=== PATIENT | male | born 1955 | race Caucasian/White ===

== ENCOUNTER 2018-06-08 08:49 | Inpatient (IN) ==
[2018-06-08] MEDS ORDERED: NORMAL SALINE 1,000 ML IV ONE (09:04)
[2018-06-08] MEDS ORDERED: ALBUTEROL SULFATE/IPRATROPIUM 3 ML NEBU IH ONE ×2 (09:05→09:35)
[2018-06-08 10:01] LABS: Hematocrit 38.2 % (42.0-52.0); Hemoglobin 12.5 gm/dL (13.5-18.0); Mean Cell Volume 98.2 fl (78-100); Mean Corpuscular Hemoglobin 32.1 pg (27-31); Mean Corpuscular Hgb Conc 32.7 g/dl (32-36); Mean Platelet Volume 9.5 fl (8-11.3); Neutrophil # 5.4 K/mm3 (1.3-6.0); Platelet Count 208 K/mm3 (150-450); Red Blood Count 3.89 M/mm3 (4.7-6.0); Red Cell Distribution Width 12.3 % (11.5-14.0); White Blood Count 7.7 K/mm3 (4.0-10.5)
[2018-06-08 10:20] LABS: ALT 24 U/L (19-67); AST 21 U/L (0-48); BNP * 172 pg/mL (5-175); Blood Urea Nitrogen 29 mg/dL (6-23); Carbon Dioxide 23.3 mmol/L (24-32.6); Chloride 100 mmol/L (97-106); Potassium 4.3 mmol/L (3.4-4.6); Sodium 132 mmol/L (132-142)
[2018-06-08] MEDS ORDERED: LEVOFLOXACIN IN DEXTROSE 5 % 750 MG/150 ML BAG IV ONE (10:20)
[2018-06-08 10:21] LABS: Troponin I Less than 0.017 ng/mL (0.00-0.10)
--- NOTE | 2018-06-08 10:31 | ANES ---
Anesthesia Procedure Note Procedure Note: ANESTHESIA PROCEDURE NOTE Date of Procedure: 06/08/2018. Time of procedure: 1020. Performed by: Adin Treviño CRNA Pharmaceutical Detailer: None. Preprocedure diagnosis: Pneumonia, difficult IV access. Post procedure diagnosis: Same. Procedure: Peripheral vein IV insertion. Indications: There is a 62-year-old male in need of a peripheral IV. Findings: See below. Details of the procedure: Skin over the intended target site was cleansed with alcohol. A 22-gauge IV catheter was inserted into a right wrist vein. A sterile dressing was applied over the insertion site. The line was then flushed with sterile saline solution. EBL: Minimal. Fluids: N/A. Specimen: N/A. Post procedure condition: The patient tolerated the procedure well. No complications were noted. Thank you for this consultation. Adin Treviño CRNA
[2018-06-08 10:50] LABS: Albumin * 3.4 gm/dl (3.4-5.0); Alkaline Phosphatase * 97 U/L (50-170); BUN/Creatinine Ratio 21.6 (9.0-21.6); Bilirubin, Total 0.8 mg/dL (0.0-1.1); Ca. Corrected For Albumin 9.2 mg/dL (8.4-10.2); Glucose * 87 mg/dL (70-110); Total Protein 7.9 gm/dL (6.2-8.2)
[2018-06-08] MEDS ORDERED: diphenhydrAMINE HCL 50 MG/ML VIAL ONE (10:56)
[2018-06-08] MEDS ORDERED: METHYLPREDNISOLONE SOD SUCC/PF 125 MG/2 ML VIAL ONE (10:56)
[2018-06-08] MEDS ORDERED: diphenhydrAMINE HCL 50 MG/ML VIAL IV ONE (10:59)
[2018-06-08] MEDS ORDERED: METHYLPREDNISOLONE SOD SUCC/PF 125 MG/2 ML VIAL IV ONE (10:59)
--- NOTE | 2018-06-08 12:20 | ERNOTE ---
Dyspnea - Date Date of Service: 06/08/18 - General Presenting Symptoms: shortness of breath, other - cough and chest pain Time Seen by Provider: 06/08/18 08:59 Source: patient Exam Limitations: no limitations - Immun/Allergies/Home Medications Immunizations: IMMUNIZATION HX Immunizations Up to Date Yes History of Influenza Vaccine No Hx Pneumococcal Vaccination No - History of Present Illness Narrative: Patient presents to the ED for chest pain, shortness of breath and cough. He is being treated for a neck cancer, had chemo last approx 1 week ago and is getting daily radiation. He was not feeling well yesterday afternoon. This has worsened today where he has become so weak that he needs the nurses to help him to sit up so I can listen to his lungs. He has been having constant CP since last nigh, cough and worsening SOB. No pleuritic pain. nothing clearly makes this better or worse. Has not seen anyone else for this. Severity: moderate Treatment ASSOCIATE ACCOUNT DIRECTOR: other - home medications Initiating event: Reports: other - canver treatment Frequency of episodes: Reports: no prior episodes Modifying Factors - (Improves): Reports: nothing Modifying Factors (Worsens): Reports: nothing Associated Symptoms-Dyspnea: Reports: cough, weakness. Denies: leg/calf pain Prior Treatment: Reports: recently seen, treated by physician Review of Systems - Review of Systems Constitutional: Absent: fever ENT: Absent: sore throat Respiratory: Present: shortness of breath, cough Cardiology: Present: chest pain Gastrointestinal/Abdominal: Present: other - feels constipated. Neurological: Present: weakness All Other Systems: All systems neg except as marked Social History: Preferred Language Citizen Of [place] Do you have any confucianist or No cultural preference? Smoking Status Former smoker Have you smoked in the past 12 No months Do you dip or chew tobacco No Alcohol Use none Drug Use none Physical Exam - Physical Exam General Appearance: Present: alert, no apparent distress Head Exam: Present: normal inspection, no evidence of injury Eye Exam: Normal inspection: bilateral, PERRL: bilateral Ears, Nose, Throat: Present: normal ENT inspection Neck: Present: normal inspection Respiratory: Present: no respiratory distress, no accessory muscle use, other - i feel there are tubular breath sounds left base Cardiovascular/Chest: Present: regular rate, rhythm, normal peripheral pulses Gastrointestinal/Abdominal: Present: normal bowel sounds Back Exam: Absent: CVA tenderness (R), CVA tenderness (L) Extremity Exam: Present: other - no DVT findings Neurological Exam: Present: alert, other - generalized weakness, no acute unilateral focal motor or sensory deficits Skin Exam: Present: normal color, warm/dry ED Progress - Results and Orders Patient's Lab Results:: I have reviewed the patient's lab results. - Vital Signs Patient's Vital Signs:: I have reviewed the patient's vital signs. Vital Signs: Vital Signs 06/08/18 08:53 06/08/18 10:45 Temperature 36.5 C Pulse Rate 57 L 60 Respiratory Rate 16 11 L Blood Pressure 135/63 116/63 O2 Sat by Pulse Oximetry 100 100 - EKG EKG read: Interp. by me EKG Comments: Sinus bradycardia, rate 57. Non-specific, no STEMI - X-Ray X-Ray #1 X-Ray: chest Interpretation: Interp. by me X-ray Comments: I reviewed official radiology report - Progress/Reassessment Chief Complaint: Chest Pain Progress Note-Subjective: 06/08/18 12:17 Patient has pneumonia to explain his Sx. No clinical suggestion of sepsis, PE, aortic dissection, or upper airway obstruction. IV ABx givne. He is quite weak and his PSI is 94 so observation will be pursued. D/W Dr Lee, he will admit the patient obs. Patient agreeable. Departure Clinical Impression: Pneumonia, Generalized weakness - Departure Disposition: Still a patient Condition: Fair
[2018-06-08] MEDS ORDERED: MAGNESIUM HYDROXIDE 30 ML UDC PO ONE (16:32)
[2018-06-08] MEDS ORDERED: ONDANSETRON 8 MG PO PRN (17:13)
[2018-06-08] MEDS ORDERED: oxyCODONE HCL 5 MG TABLET PO PRN (17:13)
--- NOTE | 2018-06-08 17:13 | HP ---
Chief Complaint - Chief Complaint Date of Service: 06/08/18 Time of Service: 17:00 Chief Complaint: chest pain History of Present Illness: Jesus Adams, is a 62-year-old white male, with previous medical history of hypertension, hyperlipidemia, obesity, who was admitted on 06/08/2018 for shortness of breath chest pain and cough. The patient was recently diagnosed with cancer of the throat and neck and started chemotherapy on 06/01/2018 and finished her first cycle of 3 cycles after 1 week. He also has started daily radiotherapy for at least 35 days and has been going through the [facility]. For the last few days the patient has been having cough and night sweats. Today developed chest pain and so he went to our emergency room where chest x-ray showed he had a left lower infiltrate. His white blood cell count was 7.3 and patient is not neutropenic. He got a dose of Levaquin in the emergency room but reacted to eat and so he got Benadryl and IV steroids. He was started on IV Rocephin and azithromycin and was admitted under our pneumonia protocol. He was told by his doctor that one of the chemotherapy could make one of his heart block's collapse. We will try to get his medical records from [facility] and [facility] and will order for an echocardiogram tomorrow morning. Medical History (Last Updated 06/08/18 @ 13:09 by Shawna Banks RN) Carpal tunnel syndrome on both sides Social History: Patient Lives/Resources With Spouse Utilized Occupation Preferred Language Hungarian Do you have any orthodoxy or No cultural preference? Smoking Status Former smoker Have you smoked in the past 12 No months Do you dip or chew tobacco No Alcohol Use none Drug Use none Review Of Systems (GEN) - Review of Systems Generalized/Overall Review: Present: Weakness, Chills. Absent: Fever EENTM: Absent: Blurred Vision Respiratory: Present: Cough, Shortness of Breath Cardiac: Present: Chest Pain. Absent: Edema, Palpitations Abdominal: Absent: Nausea, Vomiting Genitourinary: Absent: Urgency, Frequency Musculoskeletal: Absent: Joint Pain Immunizations: IMMUNIZATION HX Immunizations Up to Date Yes History of Influenza Vaccine No Hx Pneumococcal Vaccination No Allergies/Adverse Reactions: Allergies Allergy/AdvReac Type Severity Reaction Status Date / Time levofloxacin [From Levaquin] Allergy Mild Rash Verified 06/08/18 13:10 Home Medications: HOME MEDICATIONS Aspirin [Aspirin EC] 81 mg PO DAILY 06/08/18 [Last Taken Unknown] Atorvastatin Calcium 20 mg PO HS 06/08/18 [Last Taken Unknown] Gabapentin [Neurontin] 300 mg PO TID 06/08/18 [Last Taken Unknown] Metoprolol Tartrate [Lopressor] 12.5 mg PO BID 06/08/18 [Last Taken Unknown] Ondansetron [Zuplenz] 8 mg PO Q8H PRN 06/08/18 [Last Taken Unknown] oxyCODONE HCL [Oxycodone] 5 - 10 mg PO Q4H PRN 06/08/18 [Last Taken Unknown] Exam - Exam Vital Signs: Vital Signs - Last Taken Temp 36.5 C 06/08/18 12:41 Pulse 64 06/08/18 12:41 Resp 14 06/08/18 12:41 BP 134/69 06/08/18 12:41 Pulse Ox 100 06/08/18 12:41 Constitutional: Present: Alert, Oriented x3, Cooperative ENT Exam: Present: hearing grossly normal Eye Exam: bilateral eye: normal inspection, PERRL, EOMI Neck: Present: supple Respiratory: Present: decreased breath sounds, No rales, No wheezing Cardiovascular/Chest: Present: regular rate, rhythm, no JVD, no murmur Abdomen: Present: Normal bowel sounds, soft, nontender, nondistended Extremity: Present: no pedal edema, no calf tenderness Diagnostic Studies: Abnormal Lab Results 06/08/18 06/08/18 Range/Units 09:51 10:00 RBC 3.89 L (4.7-6.0) M/mm3 Hgb 12.5 L (13.5-18.0) gm/dL Hct 38.2 L (42.0-52.0) % MCH 32.1 H (27-31) pg Immature Gran % (Auto) 0.90 H (0.001-0.429) % Immature Gran # (Auto) 0.07 H (0.000-0.0310) K/mm3 Lymphocytes % 19.3 L (20-51) % Lymphocytes # 1.48 L (1.5-3.5) k/mm3 Carbon Dioxide 23.3 L (24-32.6) mmol/L BUN 29 H (6-23) mg/dL Est GFR (Non-Af Amer) 57 L (60-130) mL/min Laboratory Results WBC 7.7 K/mm3 (4.0-10.5) 06/08/18 09:51 RBC 3.89 M/mm3 (4.7-6.0) L 06/08/18 09:51 Hgb 12.5 gm/dL (13.5-18.0) L 06/08/18 09:51 Hct 38.2 % (42.0-52.0) L 06/08/18 09:51 MCV 98.2 fl (78-100) 06/08/18 09:51 MCH 32.1 pg (27-31) H 06/08/18 09:51 MCHC 32.7 g/dl (32-36) 06/08/18 09:51 RDW 12.3 % (11.5-14.0) 06/08/18 09:51 Plt Count 208 K/mm3 (150-450) 06/08/18 09:51 MPV 9.5 fl (8-11.3) 06/08/18 09:51 Immature Gran % (Auto) 0.90 % (0.001-0.429) H 06/08/18 09:51 Immature Gran # (Auto) 0.07 K/mm3 (0.000-0.0310) H 06/08/18 09:51 Neutrophils % 71.0 % (42-75.0) 06/08/18 09:51 Lymphocytes % 19.3 % (20-51) L 06/08/18 09:51 Monocytes % 7.8 % (0.0-9) 06/08/18 09:51 Eosinophils % 0.7 % (0.0-3.0) 06/08/18 09:51 Basophils % 0.3 % (0.0-1.0) 06/08/18 09:51 Nucleated RBC % 0.0 k/mm3 (0-1) 06/08/18 09:51 Neutrophils # 5.4 K/mm3 (1.3-6.0) 06/08/18 09:51 Lymphocytes # 1.48 k/mm3 (1.5-3.5) L 06/08/18 09:51 Monocytes # 0.6 k/mm3 (0.0-1.0) 06/08/18 09:51 Eosinophils # 0.1 k/mm3 (0.0-0.7) 06/08/18 09:51 Absolute Basophils 0.0 k/mm3 (0.0-0.1) 06/08/18 09:51 Sodium 132 mmol/L (132-142) 06/08/18 10:00 Plasma Sodium 132 mmol/L (130-142) 06/08/18 10:00 Potassium 4.3 mmol/L (3.4-4.6) 06/08/18 10:00 Chloride 100 mmol/L (97-106) 06/08/18 10:00 Carbon Dioxide 23.3 mmol/L (24-32.6) L 06/08/18 10:00 Anion Gap 13.0 mmol/L (6.8-13.8) 06/08/18 10:00 BUN 29 mg/dL (6-23) H 06/08/18 10:00 Creatinine 1.34 mg/dL (0.4-1.4) 06/08/18 10:00 Est GFR (Non-Af Amer) 57 mL/min (60-130) L 06/08/18 10:00 BUN/Creatinine Ratio 21.6 (9.0-21.6) 06/08/18 10:00 Random Glucose 87 mg/dL (70-110) 06/08/18 10:00 Lactic Acid, Venous 1.9 mmol/L (0.4-2.0) 06/08/18 Unknown Calcium 9.0 mg/dL (7.9-10.9) 06/08/18 10:00 Calcium Adj for Albumin 9.2 mg/dL (8.4-10.2) 06/08/18 10:00 Total Bilirubin 0.8 mg/dL (0.0-1.1) 06/08/18 10:00 AST 21 U/L (0-48) 06/08/18 10:00 ALT 24 U/L (19-67) 06/08/18 10:00 Alkaline Phosphatase 97 U/L (50-170) 06/08/18 10:00 Troponin I Less than 0.017 ng/mL (0.00-0.10) 06/08/18 10:00 B-Natriuretic Peptide 172 pg/mL (5-175) 06/08/18 10:00 Total Protein 7.9 gm/dL (6.2-8.2) 06/08/18 10:00 Albumin 3.4 gm/dl (3.4-5.0) 06/08/18 10:00 Assessment/Plan - Assessment/Plan (1) Pneumonia Assessment: patient is not neutropenic. will continue with IV rocephin and Azithromycin. Problem: Acute Qualifiers: Pneumonia type: due to unspecified organism Laterality: left Lung location: lower lobe of lung Qualified Code(s): J18.1 - Lobar pneumonia, unspecified organism (2) Cancer of neck Assessment: will let patient sign release of medical records from [facility]. Problem: Acute (3) Tongue cancer Problem: Acute (4) Hypertension Assessment: will continue with is home medication Problem: Acute Qualifiers: Hypertension type: essential hypertension Qualified Code(s): I10 - Essential (primary) hypertension (5) Hyperlipidemia Assessment: will continue with home medications Problem: Acute Qualifiers: Hyperlipidemia type: mixed hyperlipidemia Qualified Code(s): E78.2 - Mixed hyperlipidemia (6) Generalized weakness Assessment: will refer tot PT for evaluation Problem: Acute
[2018-06-08] MEDS ORDERED: ACETAMINOPHEN 325 MG TABLET PO PRN (17:14)
[2018-06-08] MEDS ORDERED: ONDANSETRON HCL 4 MG TABLET PO PRN (17:21)
[2018-06-08] MEDS: AZITHROMYCIN 250 MG in DEXTROSE 5 % IN WATER 250 ML IV SCH ×2 (18:04)
[2018-06-08] MEDS: POLYETHYLENE GLYCOL 3350 119 GM BTL PO SCH (18:05)
[2018-06-08] MEDS: ROSUVASTATIN CALCIUM 10 MG TABLET PO SCH (22:35)
[2018-06-08] MEDS: METOPROLOL TARTRATE 25 MG TABLET PO SCH (22:36)
[2018-06-09] MEDS: POLYETHYLENE GLYCOL 3350 119 GM BTL PO SCH (08:18)
[2018-06-09] MEDS: GABAPENTIN 300 MG CAPSULE PO SCH ×3 (08:19→17:21)
[2018-06-09] MEDS: METOPROLOL TARTRATE 25 MG TABLET PO SCH ×2 (08:19→20:13)
[2018-06-09] MEDS: ASPIRIN 81 MG TABLET.DR PO SCH (08:19)
--- NOTE | 2018-06-09 13:02 | PN ---
Subjective - Date and Time Seen Date: 06/09/18 Time: 12:54 Subjective Narrative: Patient 's main complaint is abdominal carroll and no BM for the last 5 day. Did not respond to miralax and MOM. afebrile Tmax 37 C. Objective - Review of Systems Generalized/Overall Review: Reports: Weakness. Denies: Chills, Fever EENTM: Denies: Blurred Vision Respiratory: Reports: Cough, Shortness of Breath. Denies: Wheezing Cardiac: Denies: Chest Pain, Edema, Palpitations Abdominal: Reports: Abdominal Pain, Constipation. Denies: Nausea, Vomiting Genitourinary Symptoms: Denies: Urgency, Frequency Musculoskeletal Complaints: Reports: Joint Pain - Vitals Vitals: Last Vital Signs Temp 36.8 C 06/09/18 10:36 Pulse 62 06/09/18 10:36 Resp 18 06/09/18 10:36 BP 140/82 06/09/18 10:36 Pulse Ox 98 06/09/18 10:36 - Exam Constitutional: Present: Alert, Oriented x3, Cooperative ENT Exam: Present: hearing grossly normal Neck: Present: supple Respiratory: Present: decreased breath sounds, No rales, No wheezing Cardiovascular/Chest: Present: regular rate, rhythm, no JVD, no murmur Abdomen: Present: Normal bowel sounds, soft, nontender, distended Extremity: Present: no pedal edema, no calf tenderness Assessment/Plan - Problems/Diagnosis (1) Pneumonia Problem: Acute Qualifiers: Pneumonia type: due to unspecified organism Laterality: left Lung location: lower lobe of lung Qualified Code(s): J18.1 - Lobar pneumonia, unspecified organism Narrative: will keep on IV abx f0r 3-4 days and change to oral abx and possible d/c on Tuesday. he just had CTX and RTX- could be immunocompromised although we don't have neutropenia as of yet. will transfer to acute status. 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 s/p 1 cycle of Cisplastin and on RTx, (3) Hypertension Problem: Acute Qualifiers: Hypertension type: essential hypertension Qualified Code(s): I10 - Essential (primary) hypertension (4) Hyperlipidemia Problem: Acute Qualifiers: Hyperlipidemia type: mixed hyperlipidemia Qualified Code(s): E78.2 - Mixed hyperlipidemia (5) Generalized weakness Problem: Acute (6) Constipation Problem: Acute Narrative: if no obstruction- will give enema.
[2018-06-09] MEDS ORDERED: BISACODYL 5 MG TABLET.DR PO ONE (15:20)
[2018-06-09] MEDS ORDERED: BISACODYL 10 MG SUPP.RECT RC ONE (15:20)
[2018-06-09] MEDS: AZITHROMYCIN 250 MG in DEXTROSE 5 % IN WATER 250 ML IV SCH ×2 (17:24)
[2018-06-09] MEDS: ROSUVASTATIN CALCIUM 10 MG TABLET PO SCH (20:14)
[2018-06-10 05:27] LABS: Hematocrit 37.2 % (42.0-52.0); Hemoglobin 12.7 gm/dL (13.5-18.0); Mean Cell Volume 92.5 fl (78-100); Mean Corpuscular Hemoglobin 31.6 pg (27-31); Mean Corpuscular Hgb Conc 34.1 g/dl (32-36); Neutrophil # 12.4 K/mm3 (1.3-6.0); Neutrophil % 87.1 % (42-75.0); Platelet Count 206 K/mm3 (150-450); Red Blood Count 4.02 M/mm3 (4.7-6.0); Red Cell Distribution Width 12.4 % (11.5-14.0); White Blood Count 14.2 K/mm3 (4.0-10.5)
--- NOTE | 2018-06-10 05:30 | PN ---
Subjective - Date and Time Seen Date: 06/10/18 Time: 05:30 Subjective Narrative: Pt seen this am. Bowels moved normally. States that he is coughing up alot of phlegm. Feels hungry. Has been on clears. WBC & K is more elevated today. No other acute events overnight. Objective - Vitals Vitals: Last Vital Signs Temp 36.9 C 06/10/18 03:00 Pulse 51 L 06/10/18 03:00 Resp 16 06/10/18 03:00 BP 138/77 06/10/18 03:00 Pulse Ox 97 06/10/18 03:00 - Abnormal Lab Findings Abnormal Lab Findings: Abnormal Lab Results 06/10/18 Range/Units 05:20 WBC 14.2 H D (4.0-10.5) K/mm3 RBC 4.02 L (4.7-6.0) M/mm3 Hgb 12.7 L (13.5-18.0) gm/dL Hct 37.2 L (42.0-52.0) % MCH 31.6 H (27-31) pg Immature Gran # (Auto) 0.05 H (0.000-0.0310) K/mm3 Neutrophils % 87.1 H (42-75.0) % Lymphocytes % 7.1 L (20-51) % Neutrophils # 12.4 H (1.3-6.0) K/mm3 Lymphocytes # 1.00 L (1.5-3.5) k/mm3 - Exam Constitutional: Present: Alert, Oriented x3, Cooperative, No distress ENT Exam: Present: normal ENT inspection Neck: Present: non-tender, full range of motion, supple Breasts: Present: Exam deferred Respiratory: Present: chest non-tender, No rales, No wheezing Cardiovascular/Chest: Present: normal peripheral pulses, regular rate, rhythm, bradycardia Abdomen: Present: Normal bowel sounds, soft, nontender /Rectal: Present: Exam deferred Extremity: Present: normal range of motion, non-tender, normal inspection, no pedal edema Skin Exam: Present: warm/dry, no cyanosis Lymphatic: Present: no adenopathy Neurologic: Present: alert, oriented x 3 Appearance: Present: appropriate appearance, appropriate insight Eye contact: Present: cooperative, good eye contact, normal speech Thoughts: Present: normal thought pattern, no apparent hallucination Assessment/Plan - Problems/Diagnosis (1) Pneumonia Problem: Acute Qualifiers: Pneumonia type: due to unspecified organism Laterality: left Lung location: lower lobe of lung Qualified Code(s): J18.1 - Lobar pneumonia, unspecified organism Narrative: will keep on IV abx f0r 3-4 days and change to oral abx and possible d/c on Tuesday. he just had CTX and RTX- could be immunocompromised although we don't have neutropenia as of yet. will transfer to acute status. 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 s/p 1 cycle of Cisplastin and on RTx, (3) Constipation Problem: Resolved Narrative: No obstruction on the Abd xray. had results with stimulant laxatives. (4) Generalized weakness Problem: Chronic (5) Hyperlipidemia Problem: Chronic Qualifiers: Hyperlipidemia type: mixed hyperlipidemia Qualified Code(s): E78.2 - Mixed hyperlipidemia (6) Hypertension Problem: Chronic Qualifiers: Hypertension type: essential hypertension Qualified Code(s): I10 - Essential (primary) hypertension
[2018-06-10 05:36] LABS: Anion Gap 11.5 mmol/L (6.8-13.8); BUN/Creatinine Ratio 27.2 (9.0-21.6); Calcium * 8.9 mg/dL (7.9-10.9); Carbon Dioxide 25.5 mmol/L (24-32.6); Estimated Creat Clear 69.7
[2018-06-10] MEDS: POLYETHYLENE GLYCOL 3350 119 GM BTL PO SCH (08:34)
[2018-06-10] MEDS: METOPROLOL TARTRATE 25 MG TABLET PO SCH ×2 (08:34→20:37)
[2018-06-10] MEDS: GABAPENTIN 300 MG CAPSULE PO SCH ×3 (08:35→17:19)
[2018-06-10] MEDS: ASPIRIN 81 MG TABLET.DR PO SCH (08:36)
[2018-06-10] MEDS: AZITHROMYCIN 250 MG in DEXTROSE 5 % IN WATER 250 ML IV SCH ×2 (17:15)
[2018-06-10] MEDS: ROSUVASTATIN CALCIUM 10 MG TABLET PO SCH (20:38)
[2018-06-11] MEDS: POLYETHYLENE GLYCOL 3350 119 GM BTL PO SCH (08:18)
[2018-06-11] MEDS: METOPROLOL TARTRATE 25 MG TABLET PO SCH ×2 (08:20→20:36)
[2018-06-11] MEDS: ASPIRIN 81 MG TABLET.DR PO SCH (08:20)
[2018-06-11] MEDS: GABAPENTIN 300 MG CAPSULE PO SCH ×3 (08:20→16:53)
[2018-06-11 08:35] LABS: Hematocrit 40.3 % (42.0-52.0); Hemoglobin 13.5 gm/dL (13.5-18.0); Mean Cell Volume 94.4 fl (78-100); Mean Corpuscular Hemoglobin 31.6 pg (27-31); Mean Corpuscular Hgb Conc 33.5 g/dl (32-36); Mean Platelet Volume 8.6 fl (8-11.3); Neutrophil # 4.8 K/mm3 (1.3-6.0); Neutrophil % 74.6 % (42-75.0); Platelet Count 174 K/mm3 (150-450); Red Blood Count 4.27 M/mm3 (4.7-6.0); Red Cell Distribution Width 12.7 % (11.5-14.0); White Blood Count 6.5 K/mm3 (4.0-10.5)
[2018-06-11 08:42] LABS: Anion Gap 11.3 mmol/L (6.8-13.8); BUN/Creatinine Ratio 26.1 (9.0-21.6); Calcium * 8.5 mg/dL (7.9-10.9); Carbon Dioxide 27.1 mmol/L (24-32.6); Estimated Creat Clear 66.8; Potassium 4.4 mmol/L (3.4-4.6)
--- NOTE | 2018-06-11 10:09 | PN ---
Subjective - Date and Time Seen Date: 06/11/18 Time: 10:03 Subjective Narrative: Patient afebrile. Tmax 36.9. WBC is back to normal. Had CP last night -EKG Sinus bradycardia, negative troponin. IV line went out, hard stick, anesthesia tried several times the last time. Objective - Review of Systems Generalized/Overall Review: Denies: Chills, Fever EENTM: Denies: Blurred Vision Respiratory: Denies: Cough, Shortness of Breath, Wheezing Cardiac: Reports: Chest Pain - resolved. Denies: Edema, Palpitations Abdominal: Denies: Nausea, Vomiting Genitourinary Symptoms: Denies: Urgency, Frequency Musculoskeletal Complaints: Denies: Joint Pain - Vitals Vitals: Last Vital Signs Temp 36.7 C 06/11/18 09:07 Pulse 74 06/11/18 09:07 Resp 16 06/11/18 09:07 BP 118/70 06/11/18 09:07 Pulse Ox 96 06/11/18 09:07 - Abnormal Lab Findings Abnormal Lab Findings: Abnormal Lab Results 06/11/18 06/11/18 Range/Units 08:30 08:30 RBC 4.27 L (4.7-6.0) M/mm3 Hct 40.3 L (42.0-52.0) % MCH 31.6 H (27-31) pg Lymphocytes % 15.8 L (20-51) % Lymphocytes # 1.02 L (1.5-3.5) k/mm3 BUN 31 H (6-23) mg/dL BUN/Creatinine Ratio 26.1 H (9.0-21.6) - Exam Constitutional: Present: Alert, Oriented x3, Cooperative ENT Exam: Present: hearing grossly normal Neck: Present: supple Respiratory: Present: decreased breath sounds, No rales, No wheezing Cardiovascular/Chest: Present: regular rate, rhythm, no JVD, no murmur Abdomen: Present: Normal bowel sounds, soft, nontender, nondistended Extremity: Present: no pedal edema, no calf tenderness, other - no Sabino Assessment/Plan - Problems/Diagnosis (1) Chest pain Problem: Resolved Qualifiers: Chest pain type: unspecified Qualified Code(s): R07.9 - Chest pain, unspecified Narrative: his CP was extensively worked up in [facility] [place] and they could not find the reason but he was told it was not cardiac. will PPI. (2) Pneumonia Problem: Acute Qualifiers: Pneumonia type: due to unspecified organism Laterality: left Lung location: lower lobe of lung Qualified Code(s): J18.1 - Lobar pneumonia, unspecified organism Narrative: will change now to oral antibiotics as he is a hard stick even with anesthesia consulted-his WBC is back to normal again and he is afebrile, clinically doing better. (3) Tongue cancer Problem: Acute (4) Hypertension Problem: Chronic Qualifiers: Hypertension type: essential hypertension Qualified Code(s): I10 - Essential (primary) hypertension (5) Hyperlipidemia Problem: Chronic Qualifiers: Hyperlipidemia type: mixed hyperlipidemia Qualified Code(s): E78.2 - Mixed hyperlipidemia (6) Generalized weakness Problem: Chronic (7) Bradycardia Problem: Acute Narrative: in the 40's while sleeping and in the 50's-70's while awake. due to his BBlocker. We just reduced the dose to half the strength yesterday . will monitor further.
[2018-06-11] MEDS ORDERED: AZITHROMYCIN 250 MG TABLET PO SCH (10:30)
[2018-06-11] MEDS: CEFDINIR 300 MG CAPSULE PO SCH ×2 (11:06→20:36)
[2018-06-11] MEDS: PANTOPRAZOLE SODIUM 40 MG TABLET.EC PO SCH (12:22)
[2018-06-11] MEDS: ROSUVASTATIN CALCIUM 10 MG TABLET PO SCH (20:36)
--- NOTE | 2018-06-12 05:13 | DS ---
Addendum entered and electronically signed by Reza Lee MD 06/12/18 08 :25: I saw and examined this patient on 06/12/2018. i agree with the narrative and plan of FLAVIA Brown. He had community acquired pneumonia. He reacted to levaquin. He recieved IV rocephin and Azithromycin and is being discharged on Omnicef and Azithromycin. Will do a follow up CXR in 4 weeks.Will see patient in the linic in 1 week. Original Note: <Reza Lee - Last Filed: 06/12/18 08:24> (1) Chest pain Problem: Resolved Qualifiers: Chest pain type: unspecified Qualified Code(s): R07.9 - Chest pain, unspecified (2) Pneumonia Problem: Acute Qualifiers: Pneumonia type: due to unspecified organism Laterality: left Lung location: lower lobe of lung Qualified Code(s): J18.1 - Lobar pneumonia, unspecified organism (3) Tongue cancer Problem: Acute (4) Hypertension Problem: Chronic Qualifiers: Hypertension type: essential hypertension Qualified Code(s): I10 - Essential (primary) hypertension (5) Hyperlipidemia Problem: Chronic Qualifiers: Hyperlipidemia type: mixed hyperlipidemia Qualified Code(s): E78.2 - Mixed hyperlipidemia (6) Generalized weakness Problem: Chronic (7) Bradycardia Problem: Acute Results and Findings: Pending Mircobiology Results 06/08/18 Unknown Blood Blood Culture - Preliminary NO GROWTH AFTER 48 HOURS 06/08/18 10:15 Blood Blood Culture - Preliminary NO GROWTH AFTER 48 HOURS Lab Pending Results 06/08/18 09:51: WBC 7.7, RBC 3.89 L, Hgb 12.5 L, Hct 38.2 L, MCV 98.2, MCH 32.1 H, MCHC 32.7, RDW 12.3, Plt Count 208, MPV 9.5, Immature Gran % (Auto) 0.90 H, Immature Gran # (Auto) 0.07 H, Neutrophils % 71.0, Lymphocytes % 19.3 L, Monocytes % 7.8, Eosinophils % 0.7, Basophils % 0.3, Nucleated RBC % 0.0, Neutrophils # 5.4, Lymphocytes # 1.48 L, Monocytes # 0.6, Eosinophils # 0.1, Absolute Basophils 0.0 06/08/18 10:00: Sodium 132, Plasma Sodium 132, Potassium 4.3, Chloride 100, Carbon Dioxide 23.3 L, Anion Gap 13.0, BUN 29 H, Creatinine 1.34, Est GFR (Non- Af Amer) 57 L, BUN/Creatinine Ratio 21.6, Random Glucose 87, Calcium 9.0, Calcium Adj for Albumin 9.2, Total Bilirubin 0.8, AST 21, ALT 24, Alkaline Phosphatase 97, Troponin I Less than 0.017, B-Natriuretic Peptide 172, Total Protein 7.9, Albumin 3.4 06/08/18 : Lactic Acid, Venous 1.9 06/10/18 05:20: WBC 14.2 H D, RBC 4.02 L, Hgb 12.7 L, Hct 37.2 L, MCV 92.5, MCH 31.6 H, MCHC 34.1, RDW 12.4, Plt Count 206, MPV 9.0, Immature Gran % (Auto) 0.40 , Immature Gran # (Auto) 0.05 H, Neutrophils % 87.1 H, Lymphocytes % 7.1 L, Monocytes % 5.2, Eosinophils % 0.1, Basophils % 0.1, Nucleated RBC % 0.0, Neutrophils # 12.4 H, Lymphocytes # 1.00 L, Monocytes # 0.7, Eosinophils # 0.0, Absolute Basophils 0.0 06/10/18 05:20: Sodium 135, Plasma Sodium 135, Potassium 5.0 H, Chloride 103, Carbon Dioxide 25.5, Anion Gap 11.5, BUN 31 H, Creatinine 1.14, Est GFR (Non-Af Amer) 69 D, BUN/Creatinine Ratio 27.2 H, Random Glucose 107, Calcium 8.9 06/11/18 03:30: Troponin I Less than 0.017 06/11/18 08:30: WBC 6.5 D, RBC 4.27 L, Hgb 13.5, Hct 40.3 L, MCV 94.4, MCH 31.6 H, MCHC 33.5, RDW 12.7, Plt Count 174, MPV 8.6, Immature Gran % (Auto) 0.30 , Immature Gran # (Auto) 0.02, Neutrophils % 74.6, Lymphocytes % 15.8 L, Monocytes % 8.8, Eosinophils % 0.5, Basophils % 0.0, Nucleated RBC % 0.0, Neutrophils # 4.8, Lymphocytes # 1.02 L, Monocytes # 0.6, Eosinophils # 0.0, Absolute Basophils 0.0 06/11/18 08:30: Sodium 134, Plasma Sodium 134, Potassium 4.4, Chloride 100, Carbon Dioxide 27.1, Anion Gap 11.3, BUN 31 H, Creatinine 1.19, Est GFR (Non-Af Amer) 65, BUN/Creatinine Ratio 26.1 H, Random Glucose 85, Calcium 8.5 Disposition: Home self-care Condition: Good Problem Oriented Discharge Instructions to Patient/Family: Community-Acquired Pneumonia, Adult, [id number] Additional Patient Instructions (free text): Please follow-up with your PCP next week. Follow up with Dr. Lee 06/20 at 2:45 please check in at 2:30 to do paperwork. Prescriptions (Any new or edited meds): Azithromycin [Zithromax] 250 mg PO DAILY #3 tab Cefdinir [Omnicef] 300 mg PO BID #14 cap Pantoprazole Sodium [Protonix] 40 mg PO DAILY@0700 #60 tablet. Complete Home Medications List: Complete Home Medication List: Aspirin [Aspirin EC] 81 mg PO DAILY 06/08/18 Atorvastatin Calcium 20 mg PO HS 06/08/18 Gabapentin [Neurontin] 300 mg PO TID 06/08/18 Metoprolol Tartrate [Lopressor] 12.5 mg PO BID 06/08/18 Ondansetron [Zuplenz] 8 mg PO Q8H PRN 06/08/18 oxyCODONE HCL [Oxycodone] 5 - 10 mg PO Q4H PRN 06/08/18 Azithromycin [Zithromax] 250 mg PO DAILY #3 tab 06/12/18 Cefdinir [Omnicef] 300 mg PO BID #14 cap 06/12/18 Pantoprazole Sodium [Protonix] 40 mg PO DAILY@0700 #60 tablet. 06/12/18 <Adore Hooks - Last Filed: 06/12/18 20:00> (1) Pneumonia Problem: Acute Qualifiers: Pneumonia type: due to unspecified organism Laterality: left Lung location: lower lobe of lung Qualified Code(s): J18.1 - Lobar pneumonia, unspecified organism (2) Tongue cancer Problem: Acute (3) Generalized weakness Problem: Chronic (4) Hyperlipidemia Problem: Chronic Qualifiers: Hyperlipidemia type: mixed hyperlipidemia Qualified Code(s): E78.2 - Mixed hyperlipidemia (5) Hypertension Problem: Chronic Qualifiers: Hypertension type: essential hypertension Qualified Code(s): I10 - Essential (primary) hypertension Description of Stay: Admission date: 06/09/18 Discharge date: 06/12/18 Description of Hospital Stay. Mr. Adams is a 62-year-old WM with PMH of: HTN & HLD, who was admitted on 2017 for SOB, Chest pain and cough. The pt was recently diagnosed with cancer of the throat and neck and started chemotherapy on 06/01/2018 and had completed the 1st cycle out of 3 a week before hospitalization. He was also started on daily radiation therapy and is followed by the [facility] for these treatment. On DOA , he developed chest pain which prompted him to come to the [facility] ER. The CXR obtained revealed infiltrates on the LLL. His labwork involving CBC & BMP were mostly unremarkable. He was given IV levaquin at the ED, however, he was felt to have had a reaction to the antibiotics due to red rashes. He received treatment with Solumedrol and Benadryl which resolved it. He was then started on Azithromycin and Rocephin. Because of likelihood of immonocompromised state given recent chemo and radiation treatment, it was beneficial for him to remain in the hospital to complete additional days of IV antibiotics. He cardiac work- up for his chest pain with EKG/Troponin were negative for ACS/MA. He previously had an extensive work -up at the [facility] for his C.P which was found to be non- cardiac related. He was discharged home on 7 more days of Cefdinir. Procedures Performed: none Results and Findings: Pending Mircobiology Results 06/08/18 Unknown Blood Blood Culture - Preliminary NO GROWTH AFTER 48 HOURS 06/08/18 10:15 Blood Blood Culture - Preliminary NO GROWTH AFTER 48 HOURS Lab Pending Results 06/08/18 09:51: WBC 7.7, RBC 3.89 L, Hgb 12.5 L, Hct 38.2 L, MCV 98.2, MCH 32.1 H, MCHC 32.7, RDW 12.3, Plt Count 208, MPV 9.5, Immature Gran % (Auto) 0.90 H, Immature Gran # (Auto) 0.07 H, Neutrophils % 71.0, Lymphocytes % 19.3 L, Monocytes % 7.8, Eosinophils % 0.7, Basophils % 0.3, Nucleated RBC % 0.0, Neutrophils # 5.4, Lymphocytes # 1.48 L, Monocytes # 0.6, Eosinophils # 0.1, Absolute Basophils 0.0 06/08/18 10:00: Sodium 132, Plasma Sodium 132, Potassium 4.3, Chloride 100, Carbon Dioxide 23.3 L, Anion Gap 13.0, BUN 29 H, Creatinine 1.34, Est GFR (Non- Af Amer) 57 L, BUN/Creatinine Ratio 21.6, Random Glucose 87, Calcium 9.0, Calcium Adj for Albumin 9.2, Total Bilirubin 0.8, AST 21, ALT 24, Alkaline Phosphatase 97, Troponin I Less than 0.017, B-Natriuretic Peptide 172, Total Protein 7.9, Albumin 3.4 06/08/18 : Lactic Acid, Venous 1.9 06/10/18 05:20: WBC 14.2 H D, RBC 4.02 L, Hgb 12.7 L, Hct 37.2 L, MCV 92.5, MCH 31.6 H, MCHC 34.1, RDW 12.4, Plt Count 206, MPV 9.0, Immature Gran % (Auto) 0.40 , Immature Gran # (Auto) 0.05 H, Neutrophils % 87.1 H, Lymphocytes % 7.1 L, Monocytes % 5.2, Eosinophils % 0.1, Basophils % 0.1, Nucleated RBC % 0.0, Neutrophils # 12.4 H, Lymphocytes # 1.00 L, Monocytes # 0.7, Eosinophils # 0.0, Absolute Basophils 0.0 06/10/18 05:20: Sodium 135, Plasma Sodium 135, Potassium 5.0 H, Chloride 103, Carbon Dioxide 25.5, Anion Gap 11.5, BUN 31 H, Creatinine 1.14, Est GFR (Non-Af Amer) 69 D, BUN/Creatinine Ratio 27.2 H, Random Glucose 107, Calcium 8.9 06/11/18 03:30: Troponin I Less than 0.017 06/11/18 08:30: WBC 6.5 D, RBC 4.27 L, Hgb 13.5, Hct 40.3 L, MCV 94.4, MCH 31.6 H, MCHC 33.5, RDW 12.7, Plt Count 174, MPV 8.6, Immature Gran % (Auto) 0.30 , Immature Gran # (Auto) 0.02, Neutrophils % 74.6, Lymphocytes % 15.8 L, Monocytes % 8.8, Eosinophils % 0.5, Basophils % 0.0, Nucleated RBC % 0.0, Neutrophils # 4.8, Lymphocytes # 1.02 L, Monocytes # 0.6, Eosinophils # 0.0, Absolute Basophils 0.0 06/11/18 08:30: Sodium 134, Plasma Sodium 134, Potassium 4.4, Chloride 100, Carbon Dioxide 27.1, Anion Gap 11.3, BUN 31 H, Creatinine 1.19, Est GFR (Non-Af Amer) 65, BUN/Creatinine Ratio 26.1 H, Random Glucose 85, Calcium 8.5 Discharge Location: Home Discharge Activity: Activity as tolerated Discharge Diet: General/regular food
[2018-06-12] MEDS: PANTOPRAZOLE SODIUM 40 MG TABLET.EC PO SCH (07:46)
[2018-06-12 08:30] VITALS: BP 140/84
== END 2018-06-12 08:59 | disposition home or self-care (01) | DRG 195 ==
LOC: ER 08:49 → MS 08:49
PROVIDERS: ADMIT Internal Medicine; ATTEND Internal Medicine
CPT/HCPCS: 36415; 71010; 71045; 74019; 74020; 80048; 80053; 83519; 83605; 83880; 84484; 85025; 87040; 93005; 94640; 94664; 96365; 96375; 99284

== ENCOUNTER 2018-08-01 18:10 | Inpatient (IN) ==
[2018-08-01] MEDS ORDERED: ASPIRIN 81 MG TAB.CHEW PO STA (18:21)
[2018-08-01] MEDS ORDERED: ASPIRIN 81 MG TAB.CHEW ONE (18:24)
[2018-08-01] MEDS ORDERED: NORMAL SALINE 1,000 ML IV ONE (19:17)
[2018-08-01 19:28] LABS: Albumin * 2.8 gm/dl (3.4-5.0); Anion Gap 15.7 mmol/L (6.8-13.8); BUN/Creatinine Ratio 24.3 (9.0-21.6); Bilirubin, Total 0.7 mg/dL (0.0-1.1); Ca. Corrected For Albumin 9.2 mg/dL (8.4-10.2); Calcium * 8.6 mg/dL (7.9-10.9); Carbon Dioxide 28.5 mmol/L (24-32.6); Chol/HDL Risk Ratio 3.2 mg/dL (3.3-5.0); Potassium 3.2 mmol/L (3.4-4.6); Total Protein 7.7 gm/dL (6.2-8.2)
[2018-08-01 20:01] LABS: Hematocrit 29.6 % (42.0-52.0); Mean Cell Volume 93.7 fl (78-100); Mean Corpuscular Hemoglobin 31.6 pg (27-31); Mean Corpuscular Hgb Conc 33.8 g/dl (32-36); Platelet Count 77 K/mm3 (150-450); Red Blood Count 3.16 M/mm3 (4.7-6.0); Red Cell Distribution Width 13.6 % (11.5-14.0); White Blood Count 1.6 K/mm3 (4.0-10.5)
--- NOTE | 2018-08-01 20:20 | ERNOTE ---
Abdominal HPI - Narrative Date of Service: 08/01/18 - General Chief Complaint: Abdominal Pain Time Seen by Provider: 08/01/18 18:21 Source: patient - Immun/Allergies/Home Medications Immunizatons: IMMUNIZATION HX Immunizations Up to Date Yes History of Influenza Vaccine No Hx Pneumococcal Vaccination No Allergies/Adverse Reactions: Allergies levofloxacin [From Levaquin] Allergy (Mild, Verified 08/01/18 21:16) Rash Home Medications: HOME MEDICATIONS RX: Atorvastatin Calcium 20 mg PO HS 06/08/18 [Last Taken Unknown] RX: Gabapentin [Neurontin] 900 mg PO TID 06/08/18 [Last Taken Unknown] RX: Metoprolol Tartrate [Lopressor] 12.5 mg PO BID 06/08/18 [Last Taken Unknown] ondansetron 8 mg oral soluble film 8 mg PO Q8H PRN #30 ea 06/20/18 [Last Taken Unknown] pantoprazole DR 40 mg granules delayed-release for susp in packet 40 mg PO DAILY #30 ea 06/20/18 [Last Taken Unknown] Prochlorperazine Maleate [Compazine] 10 mg PEG Q6H PRN 08/02/18 [Last Taken Unknown] RX: Famotidine 20 mg PEG BID 08/02/18 [Last Taken Unknown] - History of Present Illness Narrative: Pt comes in with chest pain for x2 days, abdominal pain, and intermittent shortness of breath. Pt has been dx with throat cancer and is receiving chemotherapy/radiation. patient stats he has had a poor appetite. Date (Duration): 08/01/18 Timing: getting worse Quality: moderate, aching, burning Activities at Onset: none Associated Symptoms: Present: headache, chest pain, shortness of breath Prior Abdominal Problems: Present: none Prior Treatment: Present: recently hospitalized Review of Systems - Review of Systems Constitutional: Present: See HPI, weakness, fatigue, malaise, weight loss, decreased activity level EYE: Present: see HPI ENT: Present: See HPI Respiratory: Present: See HPI Cardiology: Present: See HPI Gastrointestinal/Abdominal: Present: See HPI Genitourinary: Present: no symptoms reported Musculoskeletal: Present: See HPI Skin: Present: See HPI Neurological: Present: no symptoms reported Endocrine: Present: no symptoms reported Hematologic/Lymphatic: Present: no symptoms reported Psych: Present: no symptoms reported All Other Systems: All systems neg except as marked Medical History (Last Reviewed 08/01/18 @ 21:15 by Harriett Jeffries, MISTI) History of chemotherapy History of throat cancer Hx of radiation therapy Hx of tongue cancer Carpal tunnel syndrome on both sides Hypertension Pneumonia Surgical History: Surgical History (Last Reviewed 08/01/18 @ 21:15 by Harriett Jeffries, RN) History of gastrostomy tube placement Family History: Family History (Last Reviewed 08/01/18 @ 21:15 by Harriett Jeffries RN) Brother Family hx of colon cancer Hx of brain cancer Hx of cancer of lung Social History: Preferred Language Italian Smoking Status Never smoker Alcohol Use none Drug Use none Physical Exam - Physical Exam General Appearance: Present: wd/wn, alert, mild distress Head Exam: Present: normal inspection, no evidence of injury Eye Exam: Normal inspection: bilateral, PERRL: bilateral Ears, Nose, Throat: Present: dry mucous membranes - Neck: Present: supple Respiratory: Present: no accessory muscle use, chest tenderness, decreased breath sounds Cardiovascular/Chest: Present: regular rate, rhythm, no murmur, normal peripheral pulses Gastrointestinal/Abdominal: Present: normal bowel sounds, nontender, nondistended, soft, no organomegaly Back Exam: Present: normal inspection, normal range of motion, no CVA tenderness, no vertebral tenderness Extremity Exam: Present: normal inspection, non-tender, normal range of motion, no edema Neurological Exam: Present: alert, oriented, normal mood/affect, no motor/sensory deficits Skin Exam: Present: normal color, warm/dry Lymphatic Exam: Present: no adenopathy ED Progress - Results and Orders Patient's Lab Results:: I have reviewed the patient's lab results. - Vital Signs Patient's Vital Signs:: I have reviewed the patient's vital signs. Vital Signs: Vital Signs 08/01/18 18:18 Temperature 37.0 C Pulse Rate 88 Respiratory Rate 14 Blood Pressure 125/68 O2 Sat by Pulse Oximetry 99 - EKG EKG: NSR EKG read: Reviewed by me - X-Ray X-Ray #1 X-Ray: chest Interpretation: Reviewed by me X-ray Comments: no acute process - Progress/Reassessment Chief Complaint: Abdominal Pain Plan - Plan Plan: admission Departure Clinical Impression: Generalized weakness, Pancytopenia due to chemotherapy - Departure Disposition: Short Term Hospital Inpatient Condition: Stable
[2018-08-01 20:30] LABS: Atypical (Reactive) Lymph 4 % (0-2); Band 4 % (0-2.0); Immature Granulocyte 2 (0-1); Lymphocyte 14 % (20-51); Monocyte 16 % (0-9); Neutrophil 60 % (42-75); Neutrophil # 0.5 K/mm3 (1.3-6.0); Platelet Estimate Decreased (NORMAL); Total Cells Counted 50
[2018-08-01 20:31] LABS: Anisocytosis 1+
[2018-08-01] MEDS ORDERED: NORMAL SALINE 1,000 ML IV PRN (23:28)
[2018-08-01] MEDS ORDERED: POTASSIUM CHLORIDE 20 MEQ TABLET.SA PO ONE (23:29)
[2018-08-01] MEDS ORDERED: HYDROcodone/ACETAMINOPHEN 5 ML UDC PEG PRN (23:47)
[2018-08-02] MEDS ORDERED: HYDROcodone/ACETAMINOPHEN 5 ML UDC ONE ×2 (00:06→14:19)
[2018-08-02] MEDS ORDERED: ROSUVASTATIN CALCIUM 10 MG TABLET PO SCH (00:15)
[2018-08-02] MEDS: ONDANSETRON HCL/PF 2 MG/ML VIAL IV PRN (00:18)
[2018-08-02] MEDS ORDERED: PANTOPRAZOLE SODIUM 40 MG TABLET.EC PO SCH (07:00)
[2018-08-02] MEDS ORDERED: OMEPRAZOLE 2 MG/ML BTL PEG SCH (07:00)
[2018-08-02 07:22] LABS: Urine Bilirubin Negative (NEGATIVE); Urine Blood Negative /ul (NEGATIVE); Urine Ketone 5 mg/dL (NEGATIVE); Urine Nitrite Negative (NEGATIVE); Urine Protein 30 mg/dL (NEGATIVE); Urine Specific Gravity 1.025 SP.GR. (1.005-1.030); Urine Urobilinogen Normal (NORMAL)
[2018-08-02 07:45] LABS: Urine Appearance Slightly Cloudy (CLEAR); Urine Color Yellow; Urine RBC None Seen /hpf (0-5); Urine WBC 0-5 /hpf (0-5)
[2018-08-02 07:46] LABS: Urine Bacteria 1+; Urine Coarse Granular Cast 0-5 /LPF
[2018-08-02 07:47] LABS: Urine Fine Granular Cast 0-5 /LPF
[2018-08-02] MEDS: GABAPENTIN 300 MG CAPSULE PEG SCH ×3 (08:02→17:06)
[2018-08-02] MEDS: METOPROLOL TARTRATE 25 MG TABLET PEG SCH ×2 (08:02→21:22)
--- NOTE | 2018-08-02 08:18 | HP ---
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 He finished his cysplastin at the end of July and is continuing with his radiotherapy for additional 3 months. One week prior to admission, the patient had a feeding tube placed as he was not able to swallow his medications or take any food. Yesterday the patient started having epigastric pain /chest pain, heartburn like and started upchucking blood tinged fluid mixed with saliva. The patient says he is not coughing the stuff but feels like he wants to vomit it out. He feels the problem is not at the base of his tongue but below it. His EKG showed normal sinus rhythm and his troponin 2 were normal. Medical History (Last Reviewed 08/01/18 @ 21:15 by Harriett Jeffries RN) History of chemotherapy History of throat cancer Hx of radiation therapy Hx of tongue cancer Carpal tunnel syndrome on both sides Hypertension Pneumonia Surgical History: Surgical History (Last Reviewed 08/01/18 @ 21:15 by Harriett Jeffries, MISTI) History of gastrostomy tube placement Family History: Family History (Last Reviewed 08/01/18 @ 21:15 by Harriett Jeffries RN) Brother Family hx of colon cancer Hx of brain cancer Hx of cancer of lung Social History: Patient Lives/Resources With Spouse Utilized Occupation retired Preferred Language Armenian Do you have any protestant or No cultural preference? Smoking Status Never smoker Have you smoked in the past 12 No months Alcohol Use none Drug Use none Review Of Systems (GEN) - Review of Systems Generalized/Overall Review: Present: Weakness, Weight loss. Absent: Chills, Fever Respiratory: Present: Cough, Shortness of Breath. Absent: Wheezing Cardiac: Present: Chest Pain. Absent: Edema, Palpitations Abdominal: Present: Nausea, Vomiting, Hematemesis Genitourinary: Absent: Urgency, Frequency Immunizations: IMMUNIZATION HX Immunizations Up to Date Yes History of Influenza Vaccine No Hx Pneumococcal Vaccination No Allergies/Adverse Reactions: Allergies Allergy/AdvReac Type Severity Reaction Status Date / Time levofloxacin [From Levaquin] Allergy Mild Rash Verified 08/01/18 21:16 Home Medications: HOME MEDICATIONS Atorvastatin Calcium 20 mg PO HS 06/08/18 [Last Taken Unknown] Gabapentin [Neurontin] 900 mg PO TID 06/08/18 [Last Taken Unknown] Metoprolol Tartrate [Lopressor] 12.5 mg PO BID 06/08/18 [Last Taken Unknown] ondansetron 8 mg oral soluble film 8 mg PO Q8H PRN #30 ea 06/20/18 [Last Taken U nknown] pantoprazole DR 40 mg granules delayed-release for susp in packet 40 mg PO DAILY #30 ea 06/20/18 [Last Taken Unknown] Famotidine 20 mg PEG BID 08/02/18 [Last Taken Unknown] Prochlorperazine Maleate [Compazine] 10 mg PEG Q6H PRN 08/02/18 [Last Taken Unknown] Exam - Exam Vital Signs: Vital Signs - Last Taken Temp 37.0 C 08/02/18 07:13 Pulse 84 08/02/18 07:13 Resp 18 08/02/18 07:13 BP 121/72 08/02/18 07:13 Pulse Ox 96 08/02/18 07:13 Constitutional: Present: Alert, Oriented x3, Cooperative, Mild distress, Thin and frail Eye Exam: bilateral eye: normal inspection, PERRL, EOMI Neck: Present: supple Respiratory: Present: decreased breath sounds, No rales, No wheezing Cardiovascular/Chest: Present: regular rate, rhythm, no JVD, no murmur Abdomen: Present: Normal bowel sounds, soft, nontender, nondistended Extremity: Present: no pedal edema, no calf tenderness Diagnostic Studies: Abnormal Lab Results 08/01/18 08/01/18 08/02/18 Range/Units 19:00 19:00 07:19 WBC 1.6 L (4.0-10.5) K/mm3 RBC 3.16 L (4.7-6.0) M/mm3 Hgb 10.0 L (13.5-18.0) gm/dL Hct 29.6 L (42.0-52.0) % MCH 31.6 H (27-31) pg Plt Count 77 L (150-450) K/mm3 Band Neuts % (Manual) 4 H (0-2.0) % Lymphocytes % (Manual) 14 L (20-51) % Monocytes % (Manual) 16 H (0-9) % Immature Granulocytes 2 H (0-1) Neutrophils # (Manual) 0.5 L (1.3-6.0) K/mm3 Lymphocytes # (Manual) 0.1 L (1.5-3.5) k/mm3 Atypic/Reactive Lymphs 4 H (0-2) % Platelet Estimate Decreased L (NORMAL) Potassium 3.2 L D (3.4-4.6) mmol/L Chloride 96 L (97-106) mmol/L Anion Gap 15.7 H (6.8-13.8) mmol/L BUN 51 H D (6-23) mg/dL Creatinine 2.10 H D (0.4-1.4) mg/dL Est GFR (Non-Af Amer) 34 L D (60-130) mL/min BUN/Creatinine Ratio 24.3 H (9.0-21.6) Albumin 2.8 L (3.4-5.0) gm/dl Cholesterol/HDL Ratio 3.2 L (3.3-5.0) mg/dL Urine Protein 30 H (NEGATIVE) mg/dL Prot Sulfosalicylic Acd 3+ H (0) mg/dL Urine Bacteria 1+ H (NONE) Fine Granular Casts 0-5 H (NONE) /LPF Coarse Granular Casts 0-5 H (NONE) /LPF Laboratory Results WBC 1.6 K/mm3 (4.0-10.5) L 08/01/18 19:00 RBC 3.16 M/mm3 (4.7-6.0) L 08/01/18 19:00 Hgb 10.0 gm/dL (13.5-18.0) L 08/01/18 19:00 Hct 29.6 % (42.0-52.0) L 08/01/18 19:00 MCV 93.7 fl (78-100) 08/01/18 19:00 MCH 31.6 pg (27-31) H 08/01/18 19:00 MCHC 33.8 g/dl (32-36) 08/01/18 19:00 RDW 13.6 % (11.5-14.0) 08/01/18 19:00 Plt Count 77 K/mm3 (150-450) L 08/01/18 19:00 MPV 10.0 fl (8-11.3) 08/01/18 19:00 Neutrophils % (Manual) 60 % (42-75) 08/01/18 19:00 Band Neuts % (Manual) 4 % (0-2.0) H 08/01/18 19:00 Lymphocytes % (Manual) 14 % (20-51) L 08/01/18 19:00 Monocytes % (Manual) 16 % (0-9) H 08/01/18 19:00 Immature Granulocytes 2 (0-1) H 08/01/18 19:00 Neutrophils # (Manual) 0.5 K/mm3 (1.3-6.0) L 08/01/18 19:00 Lymphocytes # (Manual) 0.1 k/mm3 (1.5-3.5) L 08/01/18 19:00 Monocytes # (Manual) 0.1 k/mm3 (0.0-1.0) 08/01/18 19:00 Atypic/Reactive Lymphs 4 % (0-2) H 08/01/18 19:00 Platelet Estimate Decreased (NORMAL) L 08/01/18 19:00 Anisocytosis 1+ 08/01/18 19:00 Elliptocytes Trace 08/01/18 19:00 Sodium 137 mmol/L (132-142) 08/01/18 19:00 Plasma Sodium 137 mmol/L (130-142) 08/01/18 19:00 Potassium 3.2 mmol/L (3.4-4.6) L D 08/01/18 19:00 Chloride 96 mmol/L (97-106) L 08/01/18 19:00 Carbon Dioxide 28.5 mmol/L (24-32.6) 08/01/18 19:00 Anion Gap 15.7 mmol/L (6.8-13.8) H 08/01/18 19:00 BUN 51 mg/dL (6-23) H D 08/01/18 19:00 Creatinine 2.10 mg/dL (0.4-1.4) H D 08/01/18 19:00 Est GFR (Non-Af Amer) 34 mL/min (60-130) L D 08/01/18 19:00 BUN/Creatinine Ratio 24.3 (9.0-21.6) H 08/01/18 19:00 Random Glucose 103 mg/dL (70-110) 08/01/18 19:00 Lactic Acid, Venous 1.1 mmol/L (0.4-2.0) 08/01/18 19:34 Calcium 8.6 mg/dL (7.9-10.9) 08/01/18 19:00 Calcium Adj for Albumin 9.2 mg/dL (8.4-10.2) 08/01/18 19:00 Total Bilirubin 0.7 mg/dL (0.0-1.1) 08/01/18 19:00 AST 39 U/L (0-48) 08/01/18 19:00 ALT 42 U/L (19-67) 08/01/18 19:00 Alkaline Phosphatase 75 U/L (50-170) 08/01/18 19:00 Troponin I Less than 0.017 ng/mL (0.00-0.10) 08/02/18 00:55 Total Protein 7.7 gm/dL (6.2-8.2) 08/01/18 19:00 Albumin 2.8 gm/dl (3.4-5.0) L 08/01/18 19:00 Triglycerides 109 mg/dL (30-200) 08/01/18 19:00 Cholesterol 157 mg/dL (0-200) 08/01/18 19:00 LDL Cholesterol 87 mg/dL (70-130) 08/01/18 19:00 VLDL Cholesterol 22 mg/dL (5-40) 08/01/18 19:00 HDL Cholesterol 48 mg/dL (40-60) 08/01/18 19:00 Cholesterol/HDL Ratio 3.2 mg/dL (3.3-5.0) L 08/01/18 19:00 Procalcitonin 0.11 ng/mL (0.05-0.50) 08/01/18 19:52 Urine Color Yellow 08/02/18 07:19 Urine Appearance Slightly cloudy (CLEAR) 08/02/18 07:19 Urine pH 6.0 pH (5.0-7.0) 08/02/18 07:19 Ur Specific [place] 1.025 SP.GR. (1.005-1.030) 08/02/18 07:19 Urine Protein 30 mg/dL (NEGATIVE) H 08/02/18 07:19 Urine Glucose (UA) Negative mg/dL (NEGATIVE) 08/02/18 07:19 Urine Ketones 5 mg/dL (NEGATIVE) 08/02/18 07:19 Urine Blood Negative /ul (NEGATIVE) 08/02/18 07:19 Urine Nitrate Negative (NEGATIVE) 08/02/18 07:19 Urine Bilirubin Negative mg/dl (NEGATIVE) 08/02/18 07:19 Prot Sulfosalicylic Acd 3+ mg/dL (0) H 08/02/18 07:19 Urine Urobilinogen Normal EU/dl (NORMAL) 08/02/18 07:19 Ur Leukocyte Esterase Negative /ul (NEGATIVE) 08/02/18 07:19 Urine RBC None seen /hpf (0-5) 08/02/18 07:19 Urine WBC 0-5 /hpf (0-5) 08/02/18 07:19 Ur Epithelial Cells 0-5 /hpf (0-5) 08/02/18 07:19 Urine Bacteria 1+ (NONE) H 08/02/18 07:19 Fine Granular Casts 0-5 /LPF (NONE) H 08/02/18 07:19 Coarse Granular Casts 0-5 /LPF (NONE) H 08/02/18 07:19 Urine Culture Comments No culture indicated 08/02/18 07:19 Assessment/Plan - Assessment/Plan (1) Epigastric abdominal pain Assessment: GERD with likely esophagitis/gastritis - RTX induced. will start IV protonix BID for now. will get flat upright plate of abdomen. will need bland diet. will refer to dietitician. he has narcortic pain medication. if still with pain will try viscous oral lidocaine soluion. he has dysphagia and odynophagia. Problem: Acute (2) Dysphagia Assessment: likely due to esophagitis r/o new metastatic lesion Problem: Acute Qualifiers: Dysphagia type: unspecified Qualified Code(s): R13.10 - Dysphagia, unspecified (3) Odynophagia Assessment: due to esophagitis likely RTX induced Problem: Acute (4) Chest pain Assessment: AMI ruled out. likely due to esophagitis/gastritis Problem: Resolved Qualifiers: (5) Generalized weakness Problem: Chronic (6) Tongue cancer Problem: Acute (7) Hyperlipidemia Problem: Chronic Qualifiers: (8) Pancytopenia due to chemotherapy Assessment: CTx stopped end july Problem: Acute
[2018-08-02] MEDS: PANTOPRAZOLE SODIUM 40 MG in NORMAL SALINE 100 ML IV SCH ×2 (08:35→21:21)
[2018-08-02] MEDS ORDERED: ASPIRIN 81 MG TAB.CHEW PEG SCH (09:00)
[2018-08-02] MEDS: POTASSIUM CHLORIDE 20 MEQ in NORMAL SALINE 1,000 ML IV SCH ×2 (09:01→17:05)
[2018-08-02] MEDS: HYDROcodone/ACETAMINOPHEN 5 ML UDC PEG PRN (14:23)
[2018-08-02] MEDS ORDERED: LIDOCAINE HCL 20 ML UDC MM ONE (15:28)
[2018-08-02] MEDS: ACETAMINOPHEN 325 MG TABLET PEG PRN (15:34)
--- NOTE | 2018-08-02 17:06 | PN ---
Mohamud Note - Interim Date: 08/02/18 Time: 17:03 Narrative: 08/02/18 17:03 Patient is still with pain despite viscous lidocaine although a little bit better. His spit is darker red now from pinkish. Will do barium swallow in the morning.
[2018-08-02] MEDS: HYDROmorphone HCL 1 MG/ML DISP.SYRIN IV PRN (19:20)
[2018-08-02] MEDS: ROSUVASTATIN CALCIUM 10 MG TABLET PEG SCH (21:22)
[2018-08-02] MEDS: FAMOTIDINE 20 MG TABLET PEG SCH (21:22)
[2018-08-03] MEDS: POTASSIUM CHLORIDE 20 MEQ in NORMAL SALINE 1,000 ML IV SCH ×3 (01:23→18:38)
--- NOTE | 2018-08-03 08:12 | PN ---
Subjective - Date and Time Seen Date: 08/03/18 Time: 08:08 Subjective Narrative: Still with pain on swallowing. had fever last night Tmax 38.5. ANC is 1. still spitting vs coughing out specks of blood. m Objective - Review of Systems Generalized/Overall Review: Reports: Weakness, Fever Respiratory: Reports: Cough, Shortness of Breath Cardiac: Reports: Chest Pain. Denies: Edema, Palpitations Abdominal: Reports: Nausea, Vomiting, Hematemesis Genitourinary Symptoms: Denies: Urgency, Frequency - Vitals Vitals: Last Vital Signs Temp 36.8 C 08/03/18 07:57 Pulse 85 08/03/18 07:57 Resp 20 08/03/18 07:57 BP 112/62 08/03/18 07:57 Pulse Ox 98 08/03/18 07:57 - Exam Constitutional: Present: Alert, Oriented x3, Cooperative, Thin and frail ENT Exam: Present: hearing grossly normal Neck: Present: supple Respiratory: Present: decreased breath sounds, No rales, No wheezing Cardiovascular/Chest: Present: regular rate, rhythm, no JVD, no murmur Abdomen: Present: Normal bowel sounds, soft, nontender, nondistended Extremity: Present: no pedal edema, calf tenderness Assessment/Plan - Problems/Diagnosis (1) Neutropenic fever Problem: Acute Narrative: source ? likely pulmonary. will do Blood culture and sputum culture. will repeat CBC. will start IV antibiotics. ADDENDUM: Repeat ANC is 0 for today from 1. Will transfer to acute status. will repeat CXR. ADDENDUM: CXR- left basal infiltrate with small pleural effusion conisder pneumonia with parapneumonic pleural effusion. (2) Pancytopenia due to chemotherapy Problem: Acute (3) Epigastric abdominal pain Problem: Acute Narrative: likely gastritis. on IV PPI (4) Dysphagia Problem: Acute Qualifiers: Dysphagia type: unspecified Qualified Code(s): R13.10 - Dysphagia, unspe cified Narrative: due to esophagitis from RTX vs infectious esophagitis. will defer esophagram as he upchucks even water (5) Odynophagia Problem: Acute Narrative: due to esophagitis- r/o due to RTX vs infectious esophagitis- bacterial vs herpes? 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 (9) Hyperlipidemia Problem: Chronic Qualifiers: Hyperlipidemia type: mixed hyperlipidemia Qualified Code(s): E78.2 - Mixed hyperlipidemia
[2018-08-03] MEDS: METOPROLOL TARTRATE 25 MG TABLET PEG SCH ×2 (08:52→20:26)
[2018-08-03] MEDS: GABAPENTIN 300 MG CAPSULE PEG SCH ×3 (08:52→17:20)
[2018-08-03] MEDS: FAMOTIDINE 20 MG TABLET PEG SCH (08:54)
[2018-08-03] MEDS: SACCHAROMYCES BOULARDII 250 MG CAPSULE PEG SCH ×2 (08:57→20:26)
[2018-08-03] MEDS: PANTOPRAZOLE SODIUM 40 MG in NORMAL SALINE 100 ML IV SCH ×2 (09:05→20:17)
[2018-08-03 09:28] LABS: Anion Gap 5.7 mmol/L (6.8-13.8); BUN/Creatinine Ratio 25.7 (9.0-21.6); Calcium * 7.6 mg/dL (7.9-10.9); Carbon Dioxide 31.4 mmol/L (24-32.6); Estimated Creat Clear 46.5; Potassium 3.1 mmol/L (3.4-4.6)
[2018-08-03] MEDS ORDERED: LIDOCAINE HCL 100 APPL BTL MM PRN (09:40)
[2018-08-03 09:41] LABS: Hematocrit 24.3 % (42.0-52.0); Hemoglobin 8.2 gm/dL (13.5-18.0); Mean Cell Volume 93.8 fl (78-100); Mean Corpuscular Hemoglobin 31.7 pg (27-31); Mean Corpuscular Hgb Conc 33.7 g/dl (32-36); Platelet Count 91 K/mm3 (150-450); Red Blood Count 2.59 M/mm3 (4.7-6.0); Red Cell Distribution Width 14.2 % (11.5-14.0); White Blood Count 0.7 K/mm3 (4.0-10.5)
[2018-08-03 09:43] LABS: Total Cells Counted 100
[2018-08-03] MEDS: MEROPENEM 1 GM in NORMAL SALINE 100 ML IV SCH ×2 (09:54→20:37)
[2018-08-03 10:13] LABS: Band 4 % (0-2.0); Immature Granulocyte 4 (0-1); Lymphocyte 28 % (20-51); Monocyte 20 % (0-9); Neutrophil 44 % (42-75); Neutrophil # 0.3 K/mm3 (1.3-6.0); Platelet Estimate Decreased (NORMAL)
[2018-08-03 10:15] LABS: Anisocytosis 1+
[2018-08-03] MEDS: PROCHLORPERAZINE MALEATE 10 MG TABLET PEG PRN (12:31)
[2018-08-03] MEDS ORDERED: POTASSIUM CHLORIDE IN WATER 100 ML IV SCH (13:00)
[2018-08-03] MEDS: ROSUVASTATIN CALCIUM 10 MG TABLET PEG SCH (20:26)
[2018-08-04] MEDS: HYDROmorphone HCL 1 MG/ML DISP.SYRIN IV PRN ×3 (01:37→16:29)
[2018-08-04] MEDS: POTASSIUM CHLORIDE 20 MEQ in NORMAL SALINE 1,000 ML IV SCH ×3 (03:41→22:11)
[2018-08-04 06:36] LABS: Hematocrit 25.9 % (42.0-52.0); Hemoglobin 8.5 gm/dL (13.5-18.0); Mean Cell Volume 95.6 fl (78-100); Mean Corpuscular Hemoglobin 31.4 pg (27-31); Mean Corpuscular Hgb Conc 32.8 g/dl (32-36); Mean Platelet Volume 8.8 fl (8-11.3); Platelet Count 89 K/mm3 (150-450); Red Blood Count 2.71 M/mm3 (4.7-6.0); White Blood Count 1.4 K/mm3 (4.0-10.5)
[2018-08-04 06:40] LABS: Total Cells Counted 100
[2018-08-04 06:46] LABS: BUN/Creatinine Ratio 17.2 (9.0-21.6); Calcium * 7.4 mg/dL (7.9-10.9); Carbon Dioxide 29.9 mmol/L (24-32.6); Potassium 2.9 mmol/L (3.4-4.6)
[2018-08-04 06:57] LABS: Band 8 % (0-2.0); Eosinophil 4 % (0-3); Lymphocyte 28 % (20-51); Monocyte 12 % (0-9); Neutrophil 48 % (42-75); Neutrophil # 0.7 K/mm3 (1.3-6.0); Platelet Estimate Decreased (NORMAL)
[2018-08-04 07:03] LABS: RBC Morphology Normal (NORMAL)
[2018-08-04] MEDS: PANTOPRAZOLE SODIUM 40 MG in NORMAL SALINE 100 ML IV SCH (07:44)
[2018-08-04] MEDS: MEROPENEM 1 GM in NORMAL SALINE 100 ML IV SCH (08:10)
[2018-08-04] MEDS: ACETAMINOPHEN 325 MG TABLET PEG PRN (08:16)
--- NOTE | 2018-08-04 09:05 | PN ---
Subjective - Date and Time Seen Date: 08/04/18 Time: 08:50 Subjective Narrative: Patient still with blood tinged sputum/saliva but less. Tmax 38.3. Objective - Review of Systems Generalized/Overall Review: Reports: Weakness, Fever Respiratory: Reports: Cough, Other - hemoptysis ve hematemesis. Denies: Shortness of Breath Cardiac: Reports: Chest Pain. Denies: Edema, Palpitations Abdominal: Reports: Nausea, Hematemesis - vs hemoptysis. Denies: Vomiting Genitourinary Symptoms: Denies: Urgency, Frequency - Vitals Vitals: Last Vital Signs Temp 38.3 C H 08/04/18 08:02 Pulse 93 08/04/18 08:02 Resp 18 08/04/18 08:02 BP 96/66 08/04/18 08:02 Pulse Ox 94 08/04/18 08:02 - Abnormal Lab Findings Abnormal Lab Findings: Abnormal Lab Results 08/03/18 08/03/18 08/04/18 Range/Units 09:16 09:16 06:17 WBC 0.7 L D 1.4 L D (4.0-10.5) K/mm3 RBC 2.59 L 2.71 L (4.7-6.0) M/mm3 Hgb 8.2 L 8.5 L (13.5-18.0) gm/dL Hct 24.3 L 25.9 L (42.0-52.0) % MCH 31.7 H 31.4 H (27-31) pg RDW 14.2 H (11.5-14.0) % Plt Count 91 L 89 L (150-450) K/mm3 Band Neuts % (Manual) 4 H 8 H (0-2.0) % Monocytes % (Manual) 20 H 12 H (0-9) % Eosinophils % (Manual) 4 H (0-3) % Immature Granulocytes 4 H (0-1) Neutrophils # (Manual) 0.3 L 0.7 L (1.3-6.0) K/mm3 Lymphocytes # (Manual) 0.2 L 0.4 L (1.5-3.5) k/mm3 Platelet Estimate Decreased L Decreased L (NORMAL) Potassium 3.1 L (3.4-4.6) mmol/L Anion Gap 5.7 L (6.8-13.8) mmol/L BUN 44 H (6-23) mg/dL Creatinine 1.71 H (0.4-1.4) mg/dL Est GFR (Non-Af Amer) 43 L D (60-130) mL/min BUN/Creatinine Ratio 25.7 H (9.0-21.6) Calcium 7.6 L (7.9-10.9) mg/dL 08/04/18 Range/Units 06:17 WBC (4.0-10.5) K/mm3 RBC (4.7-6.0) M/mm3 Hgb (13.5-18.0) gm/dL Hct (42.0-52.0) % MCH (27-31) pg RDW (11.5-14.0) % Plt Count (150-450) K/mm3 Band Neuts % (Manual) (0-2.0) % Monocytes % (Manual) (0-9) % Eosinophils % (Manual) (0-3) % Immature Granulocytes (0-1) Neutrophils # (Manual) (1.3-6.0) K/mm3 Lymphocytes # (Manual) (1.5-3.5) k/mm3 Platelet Estimate (NORMAL) Potassium 2.9 L (3.4-4.6) mmol/L Anion Gap (6.8-13.8) mmol/L BUN 29 H (6-23) mg/dL Creatinine 1.69 H (0.4-1.4) mg/dL Est GFR (Non-Af Amer) 44 L (60-130) mL/min BUN/Creatinine Ratio (9.0-21.6) Calcium 7.4 L (7.9-10.9) mg/dL - Exam Constitutional: Present: Alert, Oriented x3, Cooperative, Mild distress, Thin and frail ENT Exam: Present: hearing grossly normal Neck: Present: supple Respiratory: Present: decreased breath sounds, rhonchi, No wheezing Cardiovascular/Chest: Present: regular rate, rhythm, no JVD, no murmur Abdomen: Present: Normal bowel sounds, soft, nontender, nondistended Extremity: Present: no pedal edema, no calf tenderness Assessment/Plan - Problems/Diagnosis (1) Pneumonia Problem: Acute Qualifiers: Pneumonia type: aspiration pneumonia Aspiration pneumonia type: unspecified Laterality: left Lung location: lower lobe of lung Qualified Code(s): J69.0 - Pneumonitis due to inhalation of food and vomit Narrative: likely aspiration. on IV meropenem and IV Vanco. preliminary results- NG. 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 (2) Neutropenic fever Problem: Acute Narrative: T max 38.3 ANC 1 up form 0. continue with IV antibitoitcs. (3) Pancytopenia due to chemotherapy Problem: Acute (4) Epigastric abdominal pain Problem: Acute Narrative: GED/gastritis (5) Dysphagia Problem: Acute Qualifiers: Dysphagia type: unspecified Qualified Code(s): R13.10 - Dysphagia, unspecified Narrative: esophageal - due esopahgitis from RTX. will continue to defer barium swallow till stable. (6) Odynophagia Problem: Acute Narrative: due to esopahgitis likely due to RTX. if does not improve consider herpes or nataliia due to immunocompromised status (7) Chest pain Problem: Resolved Qualifiers: Narrative: likely heartburn from GERD with esophagitis/gastritis (8) Generalized weakness Problem: Chronic Narrative: consider PT (9) Tongue cancer Problem: Acute Narrative: s/p CTX/RTX. 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 on enteral feeding thru PEG (12) Hypokalemia due to loss of potassium Problem: Acute (13) Hypokalemia Problem: Acute Narrative: will give K rider on top of his IVF with KCl.
[2018-08-04] MEDS: VANCOMYCIN HCL 1.5 GM in DEXTROSE 5 % IN WATER 500 ML IV SCH ×2 (09:24)
[2018-08-04] MEDS: POTASSIUM CHLORIDE IN WATER 100 ML IV SCH ×2 (09:30→10:38)
[2018-08-04] MEDS: SACCHAROMYCES BOULARDII 250 MG CAPSULE PEG SCH (09:35)
[2018-08-04] MEDS: CALCIUM CARBONATE 500 MG TAB.CHEW PEG SCH ×3 (09:35→16:34)
[2018-08-04] MEDS: METOPROLOL TARTRATE 25 MG TABLET PEG SCH (09:35)
[2018-08-04] MEDS: GABAPENTIN 300 MG CAPSULE PEG SCH ×3 (09:36→16:34)
[2018-08-04] MEDS: MAGNESIUM OXIDE 400 MG TABLET PEG SCH (16:34)
[2018-08-05] MEDS: PANTOPRAZOLE SODIUM 40 MG in NORMAL SALINE 100 ML IV SCH ×3 (00:35→22:21)
[2018-08-05] MEDS: ROSUVASTATIN CALCIUM 10 MG TABLET PEG SCH ×2 (00:44→21:48)
[2018-08-05] MEDS: SACCHAROMYCES BOULARDII 250 MG CAPSULE PEG SCH ×3 (00:44→21:47)
[2018-08-05] MEDS: METOPROLOL TARTRATE 25 MG TABLET PEG SCH ×3 (00:44→21:47)
[2018-08-05] MEDS: HYDROmorphone HCL 1 MG/ML DISP.SYRIN IV PRN ×3 (00:56→18:34)
[2018-08-05] MEDS: MEROPENEM 1 GM in NORMAL SALINE 100 ML IV SCH ×3 (01:07→21:40)
[2018-08-05 05:49] LABS: Mean Cell Volume 93.5 fl (78-100); Mean Corpuscular Hemoglobin 30.7 pg (27-31); Mean Corpuscular Hgb Conc 32.9 g/dl (32-36); Mean Platelet Volume 9.4 fl (8-11.3); Neutrophil # 0.6 K/mm3 (1.3-6.0); Neutrophil % 55.7 % (42-75.0); Platelet Count 83 K/mm3 (150-450); Red Blood Count 2.31 M/mm3 (4.7-6.0); White Blood Count 1.1 K/mm3 (4.0-10.5)
[2018-08-05 06:09] LABS: Anion Gap 7.5 mmol/L (6.8-13.8); BUN/Creatinine Ratio 19.2 (9.0-21.6); Calcium * 6.8 mg/dL (7.9-10.9); Carbon Dioxide 30.7 mmol/L (24-32.6); Estimated Creat Clear 61.1; Potassium 3.2 mmol/L (3.4-4.6)
[2018-08-05] MEDS: NORMAL SALINE 1,000 ML IV PRN (07:00)
[2018-08-05] MEDS: POTASSIUM CHLORIDE 20 MEQ in NORMAL SALINE 1,000 ML IV SCH (07:06)
[2018-08-05 07:07] LABS: Hemoglobin 7.1 gm/dL (13.5-18.0)
[2018-08-05 07:08] LABS: Hematocrit 21.6 % (42.0-52.0); Total Cells Counted 100
[2018-08-05 07:17] LABS: Band 5 % (0-2.0); Lymphocyte 25 % (20-51); Monocyte 11 % (0-9); Neutrophil 59 % (42-75); Neutrophil # 0.6 K/mm3 (1.3-6.0); Platelet Estimate Decreased (NORMAL)
[2018-08-05 07:20] LABS: RBC Morphology Normal (NORMAL)
[2018-08-05] MEDS: POTASSIUM CHLORIDE 10 MEQ TABLET.SA PEG SCH ×2 (08:29→18:13)
[2018-08-05] MEDS: GABAPENTIN 300 MG CAPSULE PEG SCH ×3 (08:29→16:01)
[2018-08-05] MEDS: MAGNESIUM OXIDE 400 MG TABLET PEG SCH ×3 (08:30→16:02)
[2018-08-05] MEDS: CALCIUM CARBONATE 500 MG TAB.CHEW PEG SCH ×3 (08:30→16:02)
[2018-08-05] MEDS: VANCOMYCIN HCL 1.5 GM in DEXTROSE 5 % IN WATER 500 ML IV SCH ×2 (10:01)
[2018-08-05] MEDS: PROCHLORPERAZINE MALEATE 10 MG TABLET PEG PRN (10:15)
[2018-08-06] MEDS: ONDANSETRON HCL/PF 2 MG/ML VIAL IV PRN (07:13)
[2018-08-06] MEDS: HYDROmorphone HCL 1 MG/ML DISP.SYRIN IV PRN ×3 (07:26→21:07)
[2018-08-06] MEDS: MEROPENEM 1 GM in NORMAL SALINE 100 ML IV SCH ×2 (07:32→20:05)
[2018-08-06] MEDS: PANTOPRAZOLE SODIUM 40 MG in NORMAL SALINE 100 ML IV SCH ×2 (08:09→19:45)
[2018-08-06] MEDS: CALCIUM CARBONATE 500 MG TAB.CHEW PEG SCH ×3 (08:18→16:33)
[2018-08-06] MEDS: GABAPENTIN 300 MG CAPSULE PEG SCH ×3 (08:18→16:33)
[2018-08-06] MEDS: MAGNESIUM OXIDE 400 MG TABLET PEG SCH ×3 (08:18→16:33)
[2018-08-06] MEDS: METOPROLOL TARTRATE 25 MG TABLET PEG SCH ×2 (08:19→21:06)
[2018-08-06] MEDS: SACCHAROMYCES BOULARDII 250 MG CAPSULE PEG SCH ×2 (08:19→21:07)
[2018-08-06] MEDS: POTASSIUM CHLORIDE 10 MEQ TABLET.SA PEG SCH ×2 (08:19→16:32)
[2018-08-06] MEDS: VANCOMYCIN HCL 1.5 GM in DEXTROSE 5 % IN WATER 500 ML IV SCH ×2 (08:29)
[2018-08-06 10:01] LABS: Mean Cell Volume 93.6 fl (78-100); Mean Corpuscular Hemoglobin 31.1 pg (27-31); Mean Corpuscular Hgb Conc 33.2 g/dl (32-36); Mean Platelet Volume 8.7 fl (8-11.3); Platelet Count 94 K/mm3 (150-450); Red Blood Count 2.51 M/mm3 (4.7-6.0); Red Cell Distribution Width 13.9 % (11.5-14.0)
[2018-08-06 10:19] LABS: Anion Gap 5.9 mmol/L (6.8-13.8); BUN/Creatinine Ratio 15.3 (9.0-21.6); Bilirubin, Total 0.3 mg/dL (0.0-1.1); Ca. Corrected For Albumin 8.5 mg/dL (8.4-10.2); Calcium * 7.2 mg/dL (7.9-10.9); Carbon Dioxide 36.5 mmol/L (24-32.6); Magnesium 0.8 mg/dL (1.2-2.8); Potassium 3.4 mmol/L (3.4-4.6); Total Protein 5.8 gm/dL (6.2-8.2)
[2018-08-06 10:22] LABS: Hematocrit 23.5 % (42.0-52.0); Hemoglobin 7.8 gm/dL (13.5-18.0)
[2018-08-06 10:23] LABS: Total Cells Counted 100
[2018-08-06 11:33] LABS: Eosinophil 2 % (0-3); Lymphocyte 21 % (20-51); Monocyte 12 % (0-9); Neutrophil 65 % (42-75); Neutrophil # 0.7 K/mm3 (1.3-6.0); Platelet Estimate Decreased (NORMAL); RBC Morphology Normal (NORMAL)
[2018-08-06] MEDS: NORMAL SALINE 1,000 ML IV PRN (13:07)
[2018-08-06] MEDS: ROSUVASTATIN CALCIUM 10 MG TABLET PEG SCH (21:07)
--- NOTE | 2018-08-06 23:25 | PN ---
Subjective - Date and Time Seen Date: 08/05/18 Time: 11:30 Subjective Narrative: Reports doing well. No fever, chills, nausea, vomiting. No concerns. Objective - Vitals Vitals: Last Vital Signs Selected Entries 08/05/18 11:00 Temperature 36.4 C Pulse Rate 79 Respiratory Rate 20 Blood Pressure 120/70 O2 Sat by Pulse Oximetry 96 Oxygen Delivery Method Room Air - Abnormal Lab Findings Abnormal Lab Findings: Abnormal Lab Results - Exam Constitutional: Present: Alert, Oriented x3, Cooperative ENT Exam: Present: hearing grossly normal Respiratory: Present: lungs clear, normal breath sounds Cardiovascular/Chest: Present: regular rate, rhythm Abdomen: Present: Normal bowel sounds, soft, nontender Assessment/Plan Plan Narrative: Continue antibiotics. No changes. Overall doing better. - Problems/Diagnosis (1) Pneumonia Problem: Acute Qualifiers: Pneumonia type: aspiration pneumonia Aspiration pneumonia type: unspecified Laterality: left Lung location: lower lobe of lung Qualified Code(s): J69.0 - Pneumonitis due to inhalation of food and vomit
--- NOTE | 2018-08-06 23:26 | PN ---
Subjective - Date and Time Seen Date: 08/06/18 Time: 12:30 Subjective Narrative: Continues to feel better each day. No fever, chills, nausea, or vomiting. Objective - Vitals Vitals: Last Vital Signs Temp 37.0 C 08/06/18 19:35 Pulse 88 08/06/18 21:06 Resp 20 08/06/18 19:35 BP 138/78 08/06/18 21:06 Pulse Ox 99 08/06/18 19:35 - Abnormal Lab Findings Abnormal Lab Findings: Abnormal Lab Results 08/06/18 08/06/18 Range/Units 09:56 09:56 WBC 1.0 L (4.0-10.5) K/mm3 RBC 2.51 L (4.7-6.0) M/mm3 Hgb 7.8 L* (13.5-18.0) gm/dL Hct 23.5 L* (42.0-52.0) % MCH 31.1 H (27-31) pg Plt Count 94 L (150-450) K/mm3 Monocytes % (Manual) 12 H (0-9) % Neutrophils # (Manual) 0.7 L (1.3-6.0) K/mm3 Lymphocytes # (Manual) 0.2 L (1.5-3.5) k/mm3 Platelet Estimate Decreased L (NORMAL) Carbon Dioxide 36.5 H (24-32.6) mmol/L Anion Gap 5.9 L (6.8-13.8) mmol/L Est GFR (Non-Af Amer) 56 L (60-130) mL/min Random Glucose 141 H (70-110) mg/dL Calcium 7.2 L (7.9-10.9) mg/dL Magnesium 0.8 L (1.2-2.8) mg/dL Total Protein 5.8 L (6.2-8.2) gm/dL Albumin 2.0 L (3.4-5.0) gm/dl - Exam Constitutional: Present: Alert, Oriented x3, Cooperative ENT Exam: Present: hearing grossly normal Respiratory: Present: lungs clear, normal breath sounds Cardiovascular/Chest: Present: regular rate, rhythm Assessment/Plan Plan Narrative: Improving, continue antibiotics. - Problems/Diagnosis (1) Neutropenic fever Problem: Acute (2) Pneumonia Problem: Acute Qualifiers: Pneumonia type: aspiration pneumonia Aspiration pneumonia type: unspecified Laterality: left Lung location: lower lobe of lung Qualified Code(s): J69.0 - Pneumonitis due to inhalation of food and vomit
[2018-08-07] MEDS: HYDROmorphone HCL 1 MG/ML DISP.SYRIN IV PRN (03:47)
[2018-08-07] MEDS: ONDANSETRON HCL/PF 2 MG/ML VIAL IV PRN ×2 (03:56→12:45)
--- NOTE | 2018-08-07 08:14 | PN ---
Subjective - Date and Time Seen Date: 08/07/18 Time: 08:08 Subjective Narrative: Patient feels less pain and less bloody sputum. Afebriel for the last 72 hours. Day 5 of IV antibiotics. Objective - Review of Systems Generalized/Overall Review: Reports: Weakness. Denies: Chills, Fever Respiratory: Reports: Cough. Denies: Shortness of Breath, Wheezing Cardiac: Denies: Chest Pain, Edema, Palpitations Abdominal: Reports: Nausea, Hematemesis - vs hemoptysis. Denies: Vomiting Genitourinary Symptoms: Denies: Urgency, Frequency - Vitals Vitals: Last Vital Signs Temp 36.4 C 08/07/18 07:38 Pulse 72 08/07/18 07:38 Resp 16 08/07/18 07:38 BP 123/68 08/07/18 07:38 Pulse Ox 99 08/07/18 07:38 - Abnormal Lab Findings Abnormal Lab Findings: Abnormal Lab Results 08/06/18 08/06/18 Range/Units 09:56 09:56 WBC 1.0 L (4.0-10.5) K/mm3 RBC 2.51 L (4.7-6.0) M/mm3 Hgb 7.8 L* (13.5-18.0) gm/dL Hct 23.5 L* (42.0-52.0) % MCH 31.1 H (27-31) pg Plt Count 94 L (150-450) K/mm3 Monocytes % (Manual) 12 H (0-9) % Neutrophils # (Manual) 0.7 L (1.3-6.0) K/mm3 Lymphocytes # (Manual) 0.2 L (1.5-3.5) k/mm3 Platelet Estimate Decreased L (NORMAL) Carbon Dioxide 36.5 H (24-32.6) mmol/L Anion Gap 5.9 L (6.8-13.8) mmol/L Est GFR (Non-Af Amer) 56 L (60-130) mL/min Random Glucose 141 H (70-110) mg/dL Calcium 7.2 L (7.9-10.9) mg/dL Magnesium 0.8 L (1.2-2.8) mg/dL Total Protein 5.8 L (6.2-8.2) gm/dL Albumin 2.0 L (3.4-5.0) gm/dl - Exam Constitutional: Present: Alert, Oriented x3, Cooperative ENT Exam: Present: hearing grossly normal Neck: Present: supple Respiratory: Present: decreased breath sounds. Absent: No rales, No wheezing Cardiovascular/Chest: Present: regular rate, rhythm, no JVD, no murmur Abdomen: Present: Normal bowel sounds, soft, nontender, nondistended Extremity: Present: no pedal edema, no calf tenderness Assessment/Plan - Problems/Diagnosis (1) Pneumonia Problem: Acute Qualifiers: Pneumonia type: aspiration pneumonia Aspiration pneumonia type: unspecified Laterality: left Lung location: lower lobe of lung Qualified Code(s): J69.0 - Pneumonitis due to inhalation of food and vomit Narrative: day # 5 IV antibiotics. ANC still 1. Will get CXR in the morning. (2) Neutropenic fever Problem: Acute Narrative: afebrile for the last 3 days but still neutropenic. (3) Pancytopenia due to chemotherapy Problem: Acute (4) Epigastric abdominal pain Problem: Acute (5) Dysphagia Problem: Acute Qualifiers: Dysphagia type: unspecified Qualified Code(s): R13.10 - Dysphagia, unspecified Narrative: im[roved (6) Odynophagia Problem: Acute (7) Generalized weakness Problem: Chronic Narrative: improved (8) Tongue cancer Problem: Acute (9) Hyperlipidemia Problem: Chronic Qualifiers: Hyperlipidemia type: mixed hyperlipidemia Qualified Code(s): E78.2 - Mixed hyperlipidemia (10) Nutritional assessment Problem: Acute (11) Hypokalemia due to loss of potassium Problem: Resolved
[2018-08-07] MEDS ORDERED: VANCOMYCIN HCL LEVEL XX ONE (08:30)
[2018-08-07] MEDS: PANTOPRAZOLE SODIUM 40 MG in NORMAL SALINE 100 ML IV SCH ×2 (08:42→19:59)
[2018-08-07] MEDS: MEROPENEM 1 GM in NORMAL SALINE 100 ML IV SCH ×2 (08:42→20:24)
[2018-08-07] MEDS: METOPROLOL TARTRATE 25 MG TABLET PEG SCH ×2 (08:43→20:01)
[2018-08-07] MEDS: MAGNESIUM OXIDE 400 MG TABLET PEG SCH ×4 (08:44→20:01)
[2018-08-07] MEDS: SACCHAROMYCES BOULARDII 250 MG CAPSULE PEG SCH ×2 (08:44→20:00)
[2018-08-07] MEDS: POTASSIUM CHLORIDE 10 MEQ TABLET.SA PEG SCH ×2 (08:44→17:15)
[2018-08-07] MEDS: CALCIUM CARBONATE 500 MG TAB.CHEW PEG SCH ×3 (08:45→17:14)
[2018-08-07] MEDS: GABAPENTIN 300 MG CAPSULE PEG SCH ×3 (08:45→17:15)
[2018-08-07 09:13] LABS: Phosphorus 2.8 mg/dL (2.2-4.2); Vancomycin Trough 14.7 mcg/mL (10.0-20.0)
[2018-08-07] MEDS: VANCOMYCIN HCL 1.5 GM in DEXTROSE 5 % IN WATER 500 ML IV SCH ×2 (10:20)
[2018-08-07] MEDS: ROSUVASTATIN CALCIUM 10 MG TABLET PEG SCH (20:00)
[2018-08-08] MEDS: HYDROmorphone HCL 1 MG/ML DISP.SYRIN IV PRN (00:23)
[2018-08-08] MEDS: NORMAL SALINE 1,000 ML IV PRN (04:16)
[2018-08-08] MEDS: HYDROcodone/ACETAMINOPHEN 5 ML UDC PEG PRN (04:22)
[2018-08-08 05:34] LABS: Mean Cell Volume 94.7 fl (78-100); Mean Corpuscular Hemoglobin 31.6 pg (27-31); Mean Corpuscular Hgb Conc 33.3 g/dl (32-36); Mean Platelet Volume 9.6 fl (8-11.3); Platelet Count 118 K/mm3 (150-450); Red Blood Count 2.28 M/mm3 (4.7-6.0); White Blood Count 1.3 K/mm3 (4.0-10.5)
[2018-08-08 05:38] LABS: Hemoglobin 7.2 gm/dL (13.5-18.0)
[2018-08-08 05:39] LABS: Anion Gap 6.2 mmol/L (6.8-13.8); BUN/Creatinine Ratio 17.2 (9.0-21.6); Carbon Dioxide 33.3 mmol/L (24-32.6); Estimated Creat Clear 59.3; Hematocrit 21.6 % (42.0-52.0); Magnesium 1.2 mg/dL (1.2-2.8); Potassium 4.5 mmol/L (3.4-4.6)
[2018-08-08 05:40] LABS: Total Cells Counted 100
[2018-08-08 05:44] LABS: Calcium * 7.7 mg/dL (7.9-10.9)
[2018-08-08 05:56] LABS: Eosinophil 4 % (0-3); Lymphocyte 30 % (20-51); Monocyte 10 % (0-9); Neutrophil 56 % (42-75); Neutrophil # 0.7 K/mm3 (1.3-6.0); Platelet Estimate Decreased (NORMAL); RBC Morphology Normal (NORMAL)
[2018-08-08] MEDS: PANTOPRAZOLE SODIUM 40 MG in NORMAL SALINE 100 ML IV SCH (07:30)
[2018-08-08] MEDS: MEROPENEM 1 GM in NORMAL SALINE 100 ML IV SCH (07:31)
--- NOTE | 2018-08-08 07:41 | DS ---
(1) Pneumonia Problem: Acute Qualifiers: Pneumonia type: aspiration pneumonia Aspiration pneumonia type: unspecified Laterality: left Lung location: lower lobe of lung Qualified Code(s): J69.0 - Pneumonitis due to inhalation of food and vomit (2) Neutropenic fever Problem: Acute (3) Pancytopenia due to chemotherapy Problem: Acute (4) Epigastric abdominal pain Problem: Acute (5) Dysphagia Problem: Acute Qualifiers: Dysphagia type: unspecified Qualified Code(s): R13.10 - Dysphagia, unspecified (6) Odynophagia Problem: Acute (7) Generalized weakness Problem: Chronic (8) Tongue cancer Problem: Acute (9) Hyperlipidemia Problem: Chronic Qualifiers: Hyperlipidemia type: mixed hyperlipidemia Qualified Code(s): E78.2 - Mixed hyperlipidemia (10) Nutritional assessment Problem: Acute (11) Hypokalemia due to loss of potassium Problem: Resolved Description of Stay: Jesus Adams, is a 62-year-old white male, with previous medical history of cancer of the base of his tongue, Squamous cell, metastatic, hypertension, hyperlipidemia, who was admitted on 08/01/2018 for chest pain and epigastric pain. 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 He finished his cysplastin at the end of July and is continuing with his radiotherapy for additional 3 months. One week prior to admission, the patient had a feeding tube placed as he was not able to swallow his medications or take any food. Yesterday the patient started having epigastric pain /chest pain, heartburn like and started upchucking blood tinged fluid/sputum mixed with saliva. The patient says he is not coughing the stuff but felt like he wants to vomit it out. He feels the problem is not at the base of his tongue but below it. His EKG showed normal sinus rhythm and his troponin 2 were normal. His CXR showed no acute cardiopulmonary findings. He was started on IV Protonix BID, Viscous lidocaine, and Dilaudid PRN. He dveloped fever on his 2nd HD and IV meropenem was started. His repeat CXR left basilar infiltarte with probable parapneumonic pleural effusion. IV Vancomycin was added. He had not been feeling himself at home through the PEG tube with the bolus syringe as he was not tolerating it. He was just getting nauseous and starts vomiting. 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 His absolute neutrophil count is 1 (which shows some myeloid activity from 0) and he has received a total of 5 days of meropenem and vancomycin. he has been afebrile for the last 4 days. Clinically the patient is significantly improved. His chest x-ray shows interval improvement by my evaluation We will discharge patient on Cipro and Augmentin for additional 5-7 days more. Procedures Performed: none Results and Findings: Pending Mircobiology Results 08/03/18 09:15 Blood Blood Culture - Preliminary NO GROWTH AFTER 48 HOURS 08/03/18 08:25 Blood Blood Culture - Preliminary NO GROWTH AFTER 48 HOURS Lab Pending Results 08/01/18 19:00: WBC 1.6 L, RBC 3.16 L, Hgb 10.0 L, Hct 29.6 L, MCV 93.7, MCH 31.6 H, MCHC 33.8, RDW 13.6, Plt Count 77 L, MPV 10.0, Neutrophils % (Manual) 60, Band Neuts % (Manual) 4 H, Lymphocytes % (Manual) 14 L, Monocytes % (Manual) 16 H, Immature Granulocytes 2 H, Neutrophils # (Manual) 0.5 L, Lymphocytes # (Manual) 0.1 L, Monocytes # (Manual) 0.1, Atypic/Reactive Lymphs 4 H, Platelet Estimate Decreased L, Anisocytosis 1+, Elliptocytes Trace 08/01/18 19:00: Sodium 137, Plasma Sodium 137, Potassium 3.2 L D, Chloride 96 L, Carbon Dioxide 28.5, Anion Gap 15.7 H, BUN 51 H D, Creatinine 2.10 H D, Est GFR (Non-Af Amer) 34 L D, BUN/Creatinine Ratio 24.3 H, Random Glucose 103, Calcium 8.6, Calcium Adj for Albumin 9.2, Total Bilirubin 0.7, AST 39, ALT 42, Alkaline Phosphatase 75, Total Protein 7.7, Albumin 2.8 L, Triglycerides 109, Cholesterol 157, LDL Cholesterol 87, VLDL Cholesterol 22, HDL Cholesterol 48, Cholesterol/HDL Ratio 3.2 L 08/01/18 19:00: Troponin I Less than 0.017 08/01/18 19:34: Lactic Acid, Venous 1.1 08/01/18 19:52: Procalcitonin 0.11 08/02/18 00:55: Troponin I Less than 0.017 08/02/18 07:19: Urine Color Yellow, Urine Appearance Slightly cloudy, Urine pH 6.0, Ur Specific [place] 1.025, Urine Protein 30 H, Urine Glucose (UA) Negative, Urine Ketones 5, Urine Blood Negative, Urine Nitrate Negative, Urine Bilirubin Negative, Prot Sulfosalicylic Acd 3+ H, Urine Urobilinogen Normal, Ur Leukocyte Esterase Negative, Urine RBC None seen, Urine WBC 0-5, Ur Epithelial Cells 0-5, Urine Bacteria 1+ H, Fine Granular Casts 0-5 H, Coarse Granular Casts 0-5 H, Urine Culture Comments No culture indicated 08/03/18 09:16: WBC 0.7 L D, RBC 2.59 L, Hgb 8.2 L, Hct 24.3 L, MCV 93.8, MCH 31.7 H, MCHC 33.7, RDW 14.2 H, Plt Count 91 L, MPV 10.0, Neutrophils % (Manual) 44, Band Neuts % (Manual) 4 H, Lymphocytes % (Manual) 28, Monocytes % (Manual) 20 H, Immature Granulocytes 4 H, Neutrophils # (Manual) 0.3 L, Lymphocytes # (Manual) 0.2 L, Monocytes # (Manual) 0.1, Platelet Estimate Decreased L, Anisocytosis 1+ 08/03/18 09:16: Sodium 136, Plasma Sodium 136, Potassium 3.1 L, Chloride 102, Carbon Dioxide 31.4, Anion Gap 5.7 L, BUN 44 H, Creatinine 1.71 H, Est GFR (Non- Af Amer) 43 L D, BUN/Creatinine Ratio 25.7 H, Random Glucose 92, Calcium 7.6 L 08/03/18 09:16: Lactic Acid, Venous 1.1 08/04/18 06:17: WBC 1.4 L D, RBC 2.71 L, Hgb 8.5 L, Hct 25.9 L, MCV 95.6, MCH 31.4 H, MCHC 32.8, RDW 14.0, Plt Count 89 L, MPV 8.8, Neutrophils % (Manual) 48, Band Neuts % (Manual) 8 H, Lymphocytes % (Manual) 28, Monocytes % (Manual) 12 H, Eosinophils % (Manual) 4 H, Neutrophils # (Manual) 0.7 L, Lymphocytes # (Manual) 0.4 L, Monocytes # (Manual) 0.2, Eosinophils # (Manual) 0.1, Platelet Estimate Decreased L, RBC Morphology Normal 08/04/18 06:17: Sodium 136, Plasma Sodium 136, Potassium 2.9 L, Chloride 100, Carbon Dioxide 29.9, Anion Gap 9.0, BUN 29 H, Creatinine 1.69 H, Est GFR (Non-Af Amer) 44 L, BUN/Creatinine Ratio 17.2, Random Glucose 90, Calcium 7.4 L 08/04/18 06:30: Magnesium 0.9 L 08/05/18 05:20: WBC 1.1 L D, RBC 2.31 L, Hgb 7.1 L*, Hct 21.6 L*, MCV 93.5, MCH 30.7, MCHC 32.9, RDW 14.0, Plt Count 83 L, MPV 9.4, Immature Gran % (Auto) 0.90 H, Immature Gran # (Auto) 0.01, Neutrophils % 55.7, Neutrophils % (Manual) 59, Band Neuts % (Manual) 5 H, Lymphocytes % 26.4, Lymphocytes % (Manual) 25, Monocytes % 14.2 H, Monocytes % (Manual) 11 H, Eosinophils % 2.8, Basophils % 0.0, Nucleated RBC % 0.0, Neutrophils # 0.6 L, Neutrophils # (Manual) 0.6 L, L ymphocytes # 0.28 L, Lymphocytes # (Manual) 0.3 L, Monocytes # 0.2, Monocytes # (Manual) 0.1, Eosinophils # 0.0, Absolute Basophils 0.0, Platelet Estimate Decreased L, RBC Morphology Normal 08/05/18 05:20: Sodium 134, Plasma Sodium 135, Potassium 3.2 L, Chloride 99, Carbon Dioxide 30.7, Anion Gap 7.5, BUN 25 H, Creatinine 1.30, Est GFR (Non-Af Amer) 59 L D, BUN/Creatinine Ratio 19.2, Random Glucose 153 H D, Calcium 6.8 L 08/06/18 09:56: WBC 1.0 L, RBC 2.51 L, Hgb 7.8 L*, Hct 23.5 L*, MCV 93.6, MCH 31.1 H, MCHC 33.2, RDW 13.9, Plt Count 94 L, MPV 8.7, Neutrophils % (Manual) 65, Lymphocytes % (Manual) 21, Monocytes % (Manual) 12 H, Eosinophils % (Manual) 2, Neutrophils # (Manual) 0.7 L, Lymphocytes # (Manual) 0.2 L, Monocytes # (Manual) 0.1, Eosinophils # (Manual) 0.0, Platelet Estimate Decreased L, RBC Morphology Normal 08/06/18 09:56: Sodium 136, Plasma Sodium 137, Potassium 3.4, Chloride 97, Carbon Dioxide 36.5 H, Anion Gap 5.9 L, BUN 21, Creatinine 1.37, Est GFR (Non-Af Amer) 56 L, BUN/Creatinine Ratio 15.3, Random Glucose 141 H, Calcium 7.2 L, Calcium Adj for Albumin 8.5, Magnesium 0.8 L, Total Bilirubin 0.3, AST 41, ALT 41, Alkaline Phosphatase 77, Total Protein 5.8 L, Albumin 2.0 L 08/07/18 08:40: Phosphorus 2.8, Vancomycin Trough 14.7 08/08/18 05:24: WBC 1.3 L D, RBC 2.28 L, Hgb 7.2 L*, Hct 21.6 L*, MCV 94.7, MCH 31.6 H, MCHC 33.3, RDW 14.0, Plt Count 118 L, MPV 9.6, Neutrophils % (Manual) 56, Lymphocytes % (Manual) 30, Monocytes % (Manual) 10 H, Eosinophils % (Manual) 4 H, Neutrophils # (Manual) 0.7 L, Lymphocytes # (Manual) 0.4 L, Monocytes # (Manual) 0.1, Eosinophils # (Manual) 0.1, Platelet Estimate Decreased L, RBC Morphology Normal 08/08/18 05:24: Sodium 135, Plasma Sodium 135, Potassium 4.5 D, Chloride 100, Carbon Dioxide 33.3 H, Anion Gap 6.2 L, BUN 23, Creatinine 1.34, Est GFR (Non-Af Amer) 57 L, BUN/Creatinine Ratio 17.2, Random Glucose 91 D, Calcium 7.7 L, Magnesium 1.2 Discharge Location: Home Disposition: Home self-care Condition: Stable Discharge Activity: Activity as tolerated Discharge Diet: Other - PEG feeding-Osmolitte 1.2 480 mlbottle. 2 bottles QID per PEG. 120 ml water flush before and after feeding. Referrals: Reza Lee MD [Primary Care Provider] - Additional Patient Instructions (free text): Follow up with PCP in 1 week. Will do follow up labs . Prescriptions (Any new or edited meds): Acetaminophen [Tylenol] 650 mg PEG Q6H PRN #30 tablet PRN Reason: Pain/Fever Amoxicillin/Potassium Clav [Augmentin Es-600 Suspension] 600 mg PO BIDWM #60 ml Calcium Carbonate [Tums] 1,000 mg PEG TID 2 Days #12 tab.chew Ciprofloxacin [Cipro] 500 mg PEG BID #120 ml HYDROcodone/ACETAMINOPHEN [Hydrocodone-Apap 2.5 MG-108 MG/5 ML Solution] 10 ml PEG Q4H PRN #120 ml PRN Reason: Moderate Pain (Pain Scale 4-6) Lidocaine HCl [Lidocaine HCl Viscous 2%] 1 appl MM Q4H PRN #1 btl PRN Reason: ODYNOPHAGIA Magnesium Oxide [Mag-Ox 400] 400 mg PEG QID 1 Days #4 tablet Ondansetron [Zuplenz] 8 mg PEG Q8H PRN #30 ea PRN Reason: Nausea Pantoprazole Sodium [Protonix] 40 mg PEG DAILY #30 ea Potassium Chloride [Klor-Con 10] 30 meq PEG BIDWM 1 Days #6 tablet.sa Saccharomyces Boulardii [Florastor] 250 mg PEG BID #30 capsule Complete Home Medications List: Complete Home Medication List: Atorvastatin Calcium 20 mg PO HS 06/08/18 Gabapentin [Neurontin] 900 mg PO TID 06/08/18 Metoprolol Tartrate [Lopressor] 12.5 mg PO BID 06/08/18 Famotidine 20 mg PEG BID 08/02/18 Prochlorperazine Maleate [Compazine] 10 mg PEG Q6H PRN 08/02/18 Acetaminophen [Tylenol] 650 mg PEG Q6H PRN #30 tablet 08/08/18 Amoxicillin/Potassium Clav [Augmentin Es-600 Suspension] 600 mg PO BIDWM #60 ml 08/08/18 Calcium Carbonate [Tums] 1,000 mg PEG TID 2 Days #12 tab.chew 08/08/18 Ciprofloxacin [Cipro] 500 mg PEG BID #120 ml 08/08/18 HYDROcodone/ACETAMINOPHEN [Hydrocodone-Apap 2.5 MG-108 MG/5 ML Solution] 10 ml PEG Q4H PRN #120 ml 08/08/18 Lidocaine HCl [Lidocaine HCl Viscous 2%] 1 appl MM Q4H PRN #1 btl 08/08/18 Magnesium Oxide [Mag-Ox 400] 400 mg PEG QID 1 Days #4 tablet 08/08/18 Ondansetron [Zuplenz] 8 mg PEG Q8H PRN #30 ea 08/08/18 Pantoprazole Sodium [Protonix] 40 mg PEG DAILY #30 ea 08/08/18 Potassium Chloride [Klor-Con 10] 30 meq PEG BIDWM 1 Days #6 tablet.sa 08/08/18 Saccharomyces Boulardii [Florastor] 250 mg PEG BID #30 capsule 08/08/18
[2018-08-08] MEDS: METOPROLOL TARTRATE 25 MG TABLET PEG SCH (08:10)
[2018-08-08] MEDS: CALCIUM CARBONATE 500 MG TAB.CHEW PEG SCH ×2 (08:11→14:07)
[2018-08-08] MEDS: POTASSIUM CHLORIDE 10 MEQ TABLET.SA PEG SCH (08:11)
[2018-08-08] MEDS: MAGNESIUM OXIDE 400 MG TABLET PEG SCH ×2 (08:11→14:07)
[2018-08-08] MEDS: SACCHAROMYCES BOULARDII 250 MG CAPSULE PEG SCH (08:11)
[2018-08-08] MEDS: GABAPENTIN 300 MG CAPSULE PEG SCH ×2 (08:11→14:07)
[2018-08-08] MEDS: VANCOMYCIN HCL 1.5 GM in DEXTROSE 5 % IN WATER 500 ML IV SCH ×2 (09:11)
[2018-08-08 13:09] VITALS: BP 113/64
== END 2018-08-08 13:58 | disposition home or self-care (01) | DRG 808 ==
LOC: ER 18:10 → MS 20:46 → INTOOBSV 20:46 → MS 21:07
PROVIDERS: ADMIT Family Medicine; ATTEND Internal Medicine
CPT/HCPCS: 36415; 71010; 71020; 71045; 71046; 74019; 74020; 80048; 80053; 80061; 80202; 81001; 83605; 83735; 84100; 84145; 84484; 85007; 85025; 87040; 87070; 93005; J2405